=== PATIENT | male | born 1960 | race Asian ===

== ENCOUNTER 2020-10-12 12:36 | Outpatient (REF) | payer MEDICAID, OTHER, SELFPAY ==
[2020-10-12 13:59] LABS: Glucose Urine UA NEG (NEG); Leukocyte Esterase Urine NEG (NEG); Nitrite Urine NEG (NEG); Urine Blood NEG (NEG); Urine Ketones NEG (NEG); Urine Protein NEG (NEG-TRACE)
[2020-10-12 14:00] LABS: Hematocrit 38.9 % (42-52); Hemoglobin 12.6 g/dl (14.0-18.0); Mean Corpuscular HGB Conc 32.4 g/dl (31.0-36.0); Mean Corpuscular Hemoglobin 28.1 pg (27.0-33.0); Mean Corpuscular Volume 86.8 fL (80-98); Mean Platelet Volume 10.8 fL (9.4-12.4); Platelet Count 291 X10*3/uL (160-400); Red Blood Count 4.48 X10*6/uL (4.60-5.80); Red Cell Distribution Width 13.9 % (11.0-16.0); White Blood Count 10.4 X10*3/uL (4.8-10.8)
[2020-10-12 14:11] LABS: Appearance Urine CLEAR; Color Urine YELLOW
[2020-10-12 14:12] LABS: Estimated Average Glucose 143 mg/dL; Hemoglobin A1c % 6.6 %
[2020-10-12 14:51] LABS: Alanine Aminotransferase 42 U/L (0-40); Albumin Level 4.5 g/dL (3.5-5.0); Alkaline Phosphatase 61 U/L (39-117); Anion Gap 13 (12-20); Aspartate Amino Transferase 30 U/L (5-37); Bilirubin Direct 0.2 mg/dL (0.0-0.5); Bilirubin Total 0.4 mg/dL (0.0-1.0); Blood Urea Nitrogen 18 mg/dL (9-16); Calcium 9.9 mg/dL (8.4-10.2); Carbon Dioxide 25 mmol/L (22-29); Chloride 103 mmol/L (96-108); Cholesterol 153 mg/dL; Estimated Glomerular Filt Rate > 60; Glucose Random 94 mg/dL (60-115); HDL Cholesterol 29 mg/dL; LDL Cholesterol Calculated 86 mg/dl; Potassium 4.2 mmol/L (3.3-5.1); Sodium 137 mmol/L (135-145); Total Protein 7.6 g/dL (6.5-8.0); Triglycerides 190 mg/dL
[2020-10-17 10:58] LABS: Vitamin D 25-OH, D2 <4 ng/mL; Vitamin D 25-OH, D3 27 ng/mL; Vitamin D 25-OH, Total 27 ng/mL (30-100)
== END 2020-10-12 12:37 | disposition home or self-care (01) ==
LOC: HO.LAB 12:36
PROVIDERS: PCP Internal Medicine; Visit Provider Internal Medicine
DX: I25.10 Atherosclerotic heart disease of native coronary artery without angina pectoris (principal); E11.9 Type 2 diabetes mellitus without complications; Z12.11 Encounter for screening for malignant neoplasm of colon
CPT/HCPCS: 36415; 80048; 80061; 80076; 81003; 82306; 83036; 85027

== ENCOUNTER → 2020-11-03 12:32 | Outpatient (BNVA) | payer OTHER, MEDICAID, SELFPAY | PROVIDERS: PCP Internal Medicine; Visit Provider Internal Medicine Cardiovascular Disease | DX: Z79.01 Long term (current) use of anticoagulants (principal); I25.10 Atherosclerotic heart disease of native coronary artery without angina pectoris | CPT/HCPCS: 93005; 99202; 99212 ==

== ENCOUNTER → 2021-03-30 13:26 | Outpatient (BNVA) | payer OTHER, SELFPAY | PROVIDERS: PCP Internal Medicine; Visit Provider Internal Medicine Cardiovascular Disease | DX: I25.118 Atherosclerotic heart disease of native coronary artery with other forms of angina pectoris (principal) | CPT/HCPCS: 93005; 99212 ==

== ENCOUNTER → 2021-05-05 13:48 | Outpatient (REF) | payer OTHER, SELFPAY ==
--- NOTE | 2021-05-05 13:54 | CA_ITS ---
Transthoracic Echocardiogram Patient (Last, First, Middle): Rei Murillo, Gender: Male Date of : 1960 Age: 60 Procedure Date: 05/05/2021 Procedure Type: Transthoracic Echocardiogram Location: OP Height: 160.02 cm Weight: 95.26 kg BSA: 1.97 m2 Heart Rate: bpm BP: 110 / 70 mmHg Collection Support Specialist: DSG/ CP Referring MD: Patrick Cunningham MD Symptoms: I20.8 - Other forms of angina pectoris Conclusions: - The left ventricular systolic function is normal. - E/E prime ratio is >15, consistent with elevated filling pressures. - The inferoseptal wall is hypokinetic. - Normal right ventricular cavity size and systolic function. - There is mild dilatation of the ascending aorta. Findings Left Ventricle Normal left ventricular cavity size. There is normal left ventricular wall thickness. The left ventricular systolic function is normal. The visually estimated ejection fraction is between 55-60%. There is evidence of regional wall motion abnormalities. Abnormal diastolic function is noted. Spectral Doppler is indicative of a pseudonormal filling pattern. E/E prime ratio is >15, consistent with elevated filling pressures. Wall Motion Rest Echo Findings The inferoseptal wall is hypokinetic. Right Ventricle Normal right ventricular cavity size and systolic function. Atria Both atria are normal in size. Aortic Valve Normal aortic valve structure and function. There is no aortic valve stenosis. There is no aortic valve regurgitation. Mitral Valve There is mild mitral annular calcification. There is mild mitral valve regurgitation. There is no mitral valve stenosis. Pulmonic Valve Normal pulmonic valve structure and function. There is trace pulmonic valve regurgitation. Tricuspid Valve Normal tricuspid valve structure and function. There is trace tricuspid valve regurgitation. Normal right atrial pressure. There is no evidence of pulmonary hypertension. Great Vessels There is mild dilatation of the ascending aorta. The visualized portions of the pulmonary artery and branches are normal. Venous The inferior vena cava is normal in size and collapses greater than 50% with inspiration. Pericardium/Pleural There is no evidence of pericardial effusion. Prior Study Comparison Changes noted compared to prior study dated: 02/13/2018. Inferoseptal wall is hypokinetic. Measurements 2D Linear Measurements IVSd: 0.86 0.6-0.9/0.6-1.0 cm LVIDd: 4.96 3.9-5.3/4.2-5.9 cm LVIDd Index: 2.52 2.4-3.2/2.2-3.1 cm/m2 LVIDs: 3.10 2.0-3.6 cm LVPWd: 0.84 0.7-1.1 cm Ao Root: 3.40 2.1-3.5 cm LA Diam: 4.10 2.7-3.8/3.0-4.0 cm LAIDs Index: 2.08 1.5-2.3 cm/m2 LV Mass: 180.46 67-162/88-224 g LV Mass Index: 91.60 43-95/49-115 g/m2 LVOT Diam: 2.00 3.0+(-)1.3 cm 2D Systolic Function EF 4C: 64.90 >55% EF 2C: 63.00 >55% Mitral Valve MV Pk E: 1.16 MV PK A: 0.86 MV Decel Time: 223.00 E/A: 1.40 E'Lateral: 8.38 E'Medial: 7.18 E/E' Med: 16.20 E/E' Lat: 13.80 PHT: 65.00 MVA PHT: 3.38 Decel Dickey: 5.22 Aortic Valve AoV Pk Geovanny: 1.64 AoV Pk Grad: 11.00 LVOT LVOT Pk Geovanny: 1.16 LVOT Mn Geovanny: 0.74 LVOT VTI: 0.28 LVOT Pk Grad: 5.00 LVOT Mn Grad: 3.00 LVOT Diam: 2.00 LVOT Area: 3.14 Diastolic Function MV Pk E: 1.16 MV Pk A: 0.86 E/A: 1.40 E'Medial: 7.18 E/E' Med: 16.20 E' Laterial: 8.38 E/E' Lat: 13.80 Right Ventricle TAPSE (mm): 1.80 Tricuspid Valve TR Pk Geovanny: 1.87 TR Pk Grad: 14.00 RA Press: 3.00 RVSP: 17.00 Great Vessels Aorta Ao Root-2D: 3.40 2.0-3.7 cm Ao Asc: 3.60 2.1-3.4 cm Updated in Other Vendor System with Status of Final Patrick Cunningham MD electronically signed on 05/08/2021 8:13:12 PM with status of Final
== END ==
LOC: HO.CARD 13:48
PROVIDERS: PCP Internal Medicine; Visit Provider Internal Medicine Cardiovascular Disease
DX: I20.8 Other forms of angina pectoris (principal)
CPT/HCPCS: 93306

== ENCOUNTER → 2021-07-18 10:37 | Outpatient (BNVA) | payer OTHER, SELFPAY | PROVIDERS: PCP Internal Medicine; Referring Provider Internal Medicine; Visit Provider Internal Medicine Cardiovascular Disease | DX: I25.118 Atherosclerotic heart disease of native coronary artery with other forms of angina pectoris (principal) | CPT/HCPCS: 99212 ==

== ENCOUNTER 2021-08-25 15:34 | Outpatient (REF) | payer OTHER, SELFPAY ==
--- NOTE | ~2021-08-25 | XR_ITS ---
EXAMINATION: XR HAND, LEFT CLINICAL INFORMATION: Primary osteoarthritis. Pain second and third fingers. COMPARISON: None TECHNIQUE: PA, lateral, and oblique views of the left hand. FINDINGS: Bone alignment is normal. No fracture or dislocation is seen. Joint spaces are normal. There are surgical clips in the distal forearm. Soft tissues are otherwise unremarkable. XR/XR hand LT min 3V IMPRESSION: Normal left hand.
== END 2021-08-25 15:35 | disposition home or self-care (01) ==
LOC: HO.XRAY 15:34
PROVIDERS: PCP Internal Medicine; Visit Provider Internal Medicine
DX: M19.049 Primary osteoarthritis, unspecified hand (principal); E11.9 Type 2 diabetes mellitus without complications
CPT/HCPCS: 73130

== ENCOUNTER 2021-08-26 09:46 | Outpatient (REF) | payer OTHER, SELFPAY ==
[2021-08-26 10:33] LABS: Hematocrit 39.4 % (42.0-52.0); Hemoglobin 12.2 g/dl (14.0-18.0); Mean Corpuscular Hemoglobin 27.2 pg (27.0-33.0); Mean Corpuscular Volume 87.9 fL (80.0-98.0); Mean Platelet Volume 11.2 fL (9.4-12.4); Platelet Count 221 X10*3/uL (160-400); Red Blood Count 4.48 X10*6/uL (4.60-5.80); Red Cell Distribution Width 13.7 % (11.0-16.0); White Blood Count 8.4 X10*3/uL (4.8-10.8)
[2021-08-26 11:22] LABS: Cholesterol 141 mg/dL; HDL Cholesterol 28 mg/dL; LDL Cholesterol Calculated 81 mg/dl; Triglycerides 160 mg/dL
[2021-08-26 11:31] LABS: Appearance Urine CLEAR; Color Urine YELLOW; Glucose Urine UA NEG (NEG); Leukocyte Esterase Urine NEG (NEG); Nitrite Urine NEG (NEG); PH 6.5 (5.0-8.0); Urine Blood NEG (NEG); Urine Ketones NEG (NEG); Urine Protein NEG (NEG-TRACE)
[2021-08-26 11:41] LABS: Anion Gap 13 (12-20); Blood Urea Nitrogen 13 mg/dL (9-16); Calcium 9.7 mg/dL (8.4-10.2); Carbon Dioxide 26 mmol/L (22-29); Chloride 104 mmol/L (96-108); Estimated Glomerular Filt Rate > 60; Glucose Random 125 mg/dL (60-115); Potassium 4.4 mmol/L (3.3-5.1); Sodium 139 mmol/L (135-145)
[2021-08-26 12:12] LABS: Creatinine Urine 127.31 mg/dL
[2021-08-26 12:24] LABS: Thyroid Stimulating Hormone 1.17 uIU/mL (0.32-4.0)
[2021-08-31 16:02] LABS: Vitamin D 25-OH, D2 <4 ng/mL; Vitamin D 25-OH, D3 41 ng/mL; Vitamin D 25-OH, Total 41 ng/mL (30-100)
== END 2021-08-26 09:47 | disposition home or self-care (01) ==
LOC: HO.LAB 09:46
PROVIDERS: Absent Provider Internal Medicine; PCP Internal Medicine; Visit Provider Internal Medicine Cardiovascular Disease
DX: E11.9 Type 2 diabetes mellitus without complications (principal); M19.049 Primary osteoarthritis, unspecified hand; I25.10 Atherosclerotic heart disease of native coronary artery without angina pectoris
CPT/HCPCS: 36415; 80048; 80061; 81003; 82043; 82306; 84443; 85027

== ENCOUNTER → 2022-01-16 13:24 | Outpatient (BNVA) | payer OTHER, SELFPAY | PROVIDERS: PCP Internal Medicine; Referring Provider Internal Medicine; Visit Provider Internal Medicine Cardiovascular Disease | DX: G47.30 Sleep apnea, unspecified (principal); R00.2 Palpitations; I20.8 Other forms of angina pectoris | CPT/HCPCS: 93005; 99212 ==

== ENCOUNTER → 2022-01-20 14:58 | Outpatient (BNVA) | payer OTHER, SELFPAY | PROVIDERS: PCP Internal Medicine; Visit Provider Urology | DX: N40.1 Benign prostatic hyperplasia with lower urinary tract symptoms (principal); R35.1 Nocturia; N28.1 Cyst of kidney, acquired | CPT/HCPCS: 51798; 99202 ==

== ENCOUNTER → 2022-01-26 13:48 | Outpatient (REF) | payer OTHER, SELFPAY ==
--- NOTE | 2022-01-26 13:51 | HM_ITS ---
TYPE OF PROCEDURE: Cardiac event monitor. REQUESTING PROVIDER: Dr. Cunningham. REASON FOR TEST: Palpitations. INTERPRETATION: The patient was hooked up for cardiac event monitor from 01/26/2022 to 02/25/2022 for a total period of 30 days. I was rerequested to redictate this study today. FINDINGS: Baseline rhythm is normal sinus rhythm with intermittent episodes of atrial fibrillation. One episode of atrial fibrillation was noted on 02/03/2022 at 2:43 p.m. with heart rate varying from 73 to 123 beats per minute. Otherwise, baseline rhythm was sinus rhythm or sinus bradycardia with isolated PVCs. The patient had multiple events, but there was no clear reported symptoms associated with it. CONCLUSION: 1. Baseline rhythm predominantly sinus rhythm. 2. One episode of atrial fibrillation ranging from 73 beats to 123 beats per minute. 3. No patient reported symptoms. Felipe Ibarra MD NRS/MODL / [id number]
== END ==
LOC: HO.CARD 13:48
PROVIDERS: PCP Internal Medicine; Visit Provider Internal Medicine Cardiovascular Disease
DX: R00.2 Palpitations (principal)
CPT/HCPCS: 93270

== ENCOUNTER → 2022-02-07 14:44 | Outpatient (BNVA) | payer OTHER, SELFPAY | PROVIDERS: PCP Internal Medicine; Referring Provider Internal Medicine; Visit Provider Nurse Practitioner Family | DX: I48.0 Paroxysmal atrial fibrillation (principal); I25.10 Atherosclerotic heart disease of native coronary artery without angina pectoris; G47.30 Sleep apnea, unspecified; R00.2 Palpitations; Z79.82 Long term (current) use of aspirin; Z79.899 Other long term (current) drug therapy | CPT/HCPCS: 93005; 99212 ==

== ENCOUNTER 2022-03-06 15:51 | Outpatient (REF) | payer OTHER, SELFPAY ==
--- NOTE | ~2022-03-06 | US_ITS ---
EXAMINATION: US RETROPERITONEAL LIMITED (RENAL ONLY) CLINICAL INFORMATION: Cyst of kidney, acquired. COMPARISON: None TECHNIQUE: Real-time imaging of the kidneys. FINDINGS: RIGHT KIDNEY: 11.3 x 6.4 x 6.0 cm (SAG x AP x TRV). The kidney is normal in size, contour, and echogenicity. Renal cortical thickness is normal. No focal parenchymal lesions or hydronephrosis. There is an echogenic stone upper pole measuring 0.7 x 0.5 x 0.7 cm and 0.7 x 0.4 x 0.5 cm. LEFT KIDNEY: 11.0 x 6.2 x 5.2 cm (SAG x AP x TRV). The kidney is normal in size, contour, and echogenicity. Renal cortical thickness is normal. No calculi or focal parenchymal lesions. No hydronephrosis. There is mild pelvic fullness US/US renal BI IMPRESSION: Small echogenic nonobstructive stones upper pole right kidney There is mild pelvic fullness left kidney.
== END 2022-03-06 15:52 | disposition home or self-care (01) ==
LOC: HO.US 15:51
PROVIDERS: Visit Provider Urology
DX: N28.1 Cyst of kidney, acquired (principal)
CPT/HCPCS: 76775

== ENCOUNTER → 2022-03-28 15:52 | Outpatient (BNVA) | payer OTHER, SELFPAY | PROVIDERS: PCP Internal Medicine; Visit Provider Urology | DX: N28.1 Cyst of kidney, acquired (principal); N20.0 Calculus of kidney | CPT/HCPCS: 99212 ==

== ENCOUNTER 2022-03-31 10:30 | Outpatient (REF) | payer OTHER, SELFPAY ==
[2022-03-31 11:17] LABS: Hematocrit 38.4 % (42.0-52.0); Hemoglobin 12.5 g/dl (14.0-18.0); Mean Corpuscular HGB Conc 32.6 g/dl (31.0-36.0); Mean Corpuscular Hemoglobin 27.5 pg (27.0-33.0); Mean Corpuscular Volume 84.6 fL (80.0-98.0); Mean Platelet Volume 10.9 fL (9.4-12.4); Platelet Count 231 X10*3/uL (160-400); Red Blood Count 4.54 X10*6/uL (4.60-5.80); Red Cell Distribution Width 14.3 % (11.0-16.0); White Blood Count 9.8 X10*3/uL (4.8-10.8)
[2022-03-31 12:27] LABS: Alanine Aminotransferase 24 U/L (0-40); Albumin Level 4.4 g/dL (3.5-5.0); Alkaline Phosphatase 68 U/L (39-117); Anion Gap 16 (12-20); Aspartate Amino Transferase 22 U/L (5-37); Bilirubin Direct 0.3 mg/dL (0.0-0.5); Bilirubin Total 0.7 mg/dL (0.0-1.0); Blood Urea Nitrogen 14 mg/dL (9-16); Calcium 9.2 mg/dL (8.4-10.2); Carbon Dioxide 25 mmol/L (22-29); Chloride 102 mmol/L (96-108); Cholesterol 96 mg/dL; Estimated Glomerular Filt Rate > 60; Glucose Random 170 mg/dL (60-115); HDL Cholesterol 29 mg/dL; LDL Cholesterol Calculated 32 mg/dl; Potassium 4.5 mmol/L (3.3-5.1); Sodium 138 mmol/L (135-145); Total Protein 7.1 g/dL (6.5-8.0); Triglycerides 175 mg/dL
[2022-03-31 12:36] LABS: Prostate Specific Antigen Scr 0.69 ng/mL (<0.05-4.0); Thyroid Stimulating Hormone 1.46 uIU/mL (0.32-4.0)
[2022-03-31 13:31] LABS: Appearance Urine Clear; Color Urine Yellow; Glucose Urine UA Negative (Negative); Leukocyte Esterase Urine Negative (Negative); Nitrite Urine Negative (Negative); Specific Gravity - Urine 1.025 (1.005-1.025); Urine Blood Negative (Negative); Urine Ketones Trace mg/dL (Negative); Urine Protein Negative (Neg-Trace)
== END 2022-03-31 10:31 | disposition home or self-care (01) ==
LOC: HO.LAB 10:30
PROVIDERS: PCP Internal Medicine; Visit Provider Internal Medicine
DX: Z12.5 Encounter for screening for malignant neoplasm of prostate (principal); R00.2 Palpitations
CPT/HCPCS: 36415; 80048; 80061; 80076; 81003; 84153; 84443; 85027

== ENCOUNTER → 2022-04-04 13:25 | Outpatient (BNVA) | payer OTHER, SELFPAY | PROVIDERS: PCP Internal Medicine; Referring Provider Internal Medicine; Visit Provider Nurse Practitioner Family | DX: I48.0 Paroxysmal atrial fibrillation (principal); I25.10 Atherosclerotic heart disease of native coronary artery without angina pectoris; G47.30 Sleep apnea, unspecified; R00.2 Palpitations; E11.9 Type 2 diabetes mellitus without complications; I10 Essential (primary) hypertension; E78.5 Hyperlipidemia, unspecified; Z95.1 Presence of aortocoronary bypass graft; Z79.01 Long term (current) use of anticoagulants | CPT/HCPCS: 99212 ==

== ENCOUNTER → 2022-07-05 13:47 | Outpatient (BNVA) | payer OTHER, SELFPAY | PROVIDERS: PCP Internal Medicine; Referring Provider Internal Medicine; Visit Provider Internal Medicine Cardiovascular Disease | DX: R00.2 Palpitations (principal); G47.30 Sleep apnea, unspecified; I20.8 Other forms of angina pectoris | CPT/HCPCS: 99212 ==

== ENCOUNTER → 2022-07-20 13:39 | Outpatient (BNVA) | payer OTHER, SELFPAY | PROVIDERS: PCP Internal Medicine; Visit Provider Physician Assistant | DX: R19.5 Other fecal abnormalities (principal); I25.10 Atherosclerotic heart disease of native coronary artery without angina pectoris; E11.9 Type 2 diabetes mellitus without complications; Z95.1 Presence of aortocoronary bypass graft; Z79.01 Long term (current) use of anticoagulants | CPT/HCPCS: 99212 ==

== ENCOUNTER → 2022-09-14 14:56 | Outpatient (BNVA) | payer OTHER, SELFPAY | PROVIDERS: PCP Internal Medicine; Visit Provider Nurse Practitioner Family | DX: Z01.810 Encounter for preprocedural cardiovascular examination (principal); Z71.84 Encounter for health counseling related to travel; I48.0 Paroxysmal atrial fibrillation; I25.10 Atherosclerotic heart disease of native coronary artery without angina pectoris; I10 Essential (primary) hypertension; R00.2 Palpitations; E11.9 Type 2 diabetes mellitus without complications; G47.30 Sleep apnea, unspecified; Z95.1 Presence of aortocoronary bypass graft; Z98.890 Other specified postprocedural states; Z95.828 Presence of other vascular implants and grafts | CPT/HCPCS: 93005; 99212 ==

== ENCOUNTER 2023-03-08 10:34 | Outpatient (REF) | payer OTHER, SELFPAY ==
--- NOTE | ~2023-03-08 | US_ITS ---
EXAMINATION: US RETROPERITONEAL LIMITED (RENAL ONLY) CLINICAL INFORMATION: Calculus of kidney. COMPARISON: Renal ultrasound 03/06/2022. TECHNIQUE: Real-time imaging of the kidneys. FINDINGS: RIGHT KIDNEY: 11.8 x 5.8 x 5.9 cm (SAG x AP x TRV). The kidney is normal in size, contour, and echogenicity. Renal cortical thickness is normal. No focal parenchymal lesions or hydronephrosis. 0.3 x 0.2 x 0.3 cm and 0.3 x 0.1 x 0.2 cm upper pole focal echogenicities are identified. On previous study, 0.7 x 0.5 x 0.7 cm and 0.7 x 0.4 x 0.5 cm renal calculi were described. LEFT KIDNEY: 11.1 x 5.9 x 5.3 cm (SAG x AP x TRV). The kidney is normal in size, contour, and echogenicity. Renal cortical thickness is normal. No focal lesions. Left intrarenal collecting system fullness again demonstrated. US/US renal BI IMPRESSION: Likely small right upper pole nonobstructing renal calculi. Persistent left intrarenal collecting system fullness without hydronephrosis.
== END 2023-03-08 10:35 | disposition home or self-care (01) ==
LOC: HO.US 10:34
PROVIDERS: PCP Internal Medicine; Visit Provider Urology
DX: N20.0 Calculus of kidney (principal)
CPT/HCPCS: 76775

== ENCOUNTER 2023-03-15 10:30 | Outpatient (AMB) | payer OTHER, SELFPAY ==
--- NOTE | 2023-03-15 10:36 | A.OFFPC_ITS ---
Vital Signs 03/15/23 10:37 Height 5 ft 6 in Weight 203 lb 8 oz BMI 32.8 BP 110/70 Blood Pressure Location Lt brachial Position Sitting Pulse 69 Pulse Source Pulse Oximeter Pulse Oximetry (%) 98 Oxygen Delivery Method Room Air Intake Visit Reasons: 3M. F/U-DM Intake Note: Patient is here to follow up on DM. Complaint of body pains and requesting referral to PT, and lab order. Medicine Teacher Required: No Circle Saw Operator: Not Required per policy Accompanied by: Self / Same As Patient Allergies No Known Allergies Allergy (Verified 04/03/23 15:15) Medication List - Last Reconciled 04/03/23 by Rommel Gonzalez MD apixaban (Eliquis) 5 mg PO BID aspirin 81 mg PO DAILY atenolol 50 mg PO BID atorvastatin 80 mg PO BEDTIME blood sugar diagnostic (FreeStyle Lite Strips) USE TO TEST BLOOD SUGAR ONCE DAILY dapagliflozin propanediol (Farxiga) 10 mg PO DAILY ezetimibe (Zetia) 10 mg PO DAILY metformin 1,000 mg PO BID omeprazole magnesium (Prilosec OTC) 20 mg PO BID sitagliptin phosphate (Januvia) 100 mg PO DAILY Tobacco use date assessed: 03/15/23 Fall risk assessment: No Falls in past year Last assessed Fall Risk: 03/15/23 Dental Screening Dental Screen Date: 03/15/23 Did you have a dental visit in the last 12 months?: Yes Did you have a dental problem in the last 6 months where you did not have access to dental care?: No Was dental information given to patient?: Patient has dentist HPI 3M. F/U-DM HPI Details Patient presents to discuss chronic medical conditions. The last A1c was 7.0 . Non compliant with medications, diet or exercise. Reports no symptoms of headache, blurred vision or increased frequency of urination. No symptoms of fatigue. No nausea or vomiting. PFSH Medical History Coronary artery disease Diabetes mellitus Surgical History H/O heart bypass surgery Family History Father No problems noted. Mother No problems noted. Social History Household Members: Family Housing: Apartment Alcohol intake: never Patient Tobacco Use Status: Never used Tobacco e-Cigarette/Vaping Use: Never Used Second Hand Smoke Exposure: No service: No Current occupational status: unemployed Cognitive needs: No Hearing needs: No Vision needs: Yes (glasses) Questionnaire PHQ-9 Over the last 2 weeks, how often have you been bothered by any of the following problems? 1. Little interest or pleasure in doing things: not at all 2. Feeling down, depressed, or hopeless: not at all 3. Trouble falling or staying asleep, or sleeping too much: not at all 4. Feeling tired or having little energy: not at all 5. Poor appetite or overeating: not at all 6. Feeling bad about yourself - or that you are a failure or have let yourself or your family down: not at all 7. Trouble concentrating on things, such as reading the newspaper or watching television: not at all 8. Moving or speaking so slowly that other people could have noticed. Or the opposite - being so fidgety or restless that you have been moving around a lot more than usual: not at all 9. Thoughts that you would be better off or of hurting yourself in some way: not at all Total score: 0 Depression Screening Interpretation: Negative Source: Developed by Drs. Abelardo Patrick, Jazmine Kingston, Jan Gregorio and colleagues, with an educational angela from [employer]. Thrive Questionnaire Date Thrive assessed: 03/15/23 I am a: Patient What is your living situation today?: I have a steady place to live Within the past 12 months, did the food you bought not last and you didn't have the money to get more?: Never true Within the past 12 months, did you worry whether your food would run out before you got money to buy more?: Never true Do you have trouble paying for medicines?: No Do you have trouble getting transportation to medical appointments?: No Do you have trouble paying your heating and electricity bill?: No Do you have trouble taking care of your child, family member or friend?: No Do you have trouble with day-to-day activities such as bathing, preparing meals, shopping, managing finances, etc.?: No Are you currently unemployed and looking for a job?: No Are you interested in more education?: No Currently or been in a relationship where the following occur: no concerns reported AUDIT C Alcohol Use Questionnaire (AUDIT-C) 1. How often do you have a drink containing alcohol?: Never Total Score: 0 ELENA-7 AMB Questionnaire ELENA-7 Date ELENA - 7 assessed: 03/15/23 Feeling nervous, anxious, or on edge: 0 = Not at all Not being able to stop or control worryin = Not at all Worrying too much about different things: 0 = Not at all Trouble relaxin = Not at all Being so restless that it is hard to sit still: 0 = Not at all Becoming easily annoyed or irritable: 0 = Not at all Feeling afraid as if something awful might happen: 0 = Not at all Total ELENA-7 score (0-4 normal; 5-9 mild; 10-14 moderate; 15-21 severe): 0 Source: Developed by Drs. Abelardo Patrick, Jazmine Kingston, Jan Gregorio and colleagues, with an educational angela from [employer]. Physical exam (Primary Care) Vital Signs: Last Vital Signs Pulse 69 03/15/23 10:37 BP 110/70 03/15/23 10:37 Pulse Ox 98 03/15/23 10:37 Oxygen Delivery Method Room Air 03/15/23 10:37 BMI result Body Mass Index 32.8 Tobacco/Smoking Status: Tobacco use Status Tobacco use date assessed 03/15/23 03/15/23 10:45 Patient Tobacco Use Status Never used Tobacco 03/15/23 10:45 e-Cigarette/Vaping Use Never Used 03/15/23 10:45 PHQ-9: PHQ-9 Score PHQ-9: Total score 0 03/15/23 10:50 Depression Screening Interpretation: Negative Thrive Assessment: Date of Thrive Assessment Date Thrive assessed 03/15/23 03/15/23 10:45 Currently or been in a relationship where the following occur: no concerns reported Const General: cooperative, healthy appearing and comfortable HENMT Head: Yes normal to inspection and Yes atraumatic Eyes General: appearance normal, both eyes and all related structures Neck Neck: Yes normal visual inspection and Yes full ROM Chest Chest palpation & inspection: normal inspection of the chest Resp Effort & Inspection: normal respiratory effort Auscultation: clear to auscultation bilaterally Cardio Jugular venous distension: no JVD Palpation: normal PMI Rate: regular rate Heart sounds: S1 normal heart sound present and S2 normal heart sound present GI Palpation (GI): Soft to palpation and No hepatosplenomegaly present Extrem General: Yes normal to inspection and Yes full ROM Results AMB Hemoglobin A1c AMB Hemoglobin A1c 7.0 % Last Edit by LYUBOV Gilliam on 03/15/23 10:50 Results Reviewed Results Reviewed: Laboratory Last Values Hgb A1c (Clinic) 7.0 % (4.0-6.0) H 03/15/23 10:35 Assessment and Plan Assessment & Plan (1) Diabetes mellitus: Code(s): E11.9 - Type 2 diabetes mellitus without complications Plan: Counseling on the importance of diet and exercise done. Increase fluid intake. Continue current medications at the same dosage. Orders: Orders AMB Hemoglobin A1c 03/15/23 E11.9 - Type 2 diabetes mellitus without complicatio ns Coding Level of Care Code Est Pt Level 3 (15588) Diagnoses Diabetes mellitus E11.9
[2023-03-15 10:37] VITALS: BP 110/70; PULSE 69; O2SAT 98; BMI 32.8
== END 2023-03-15 11:06 | disposition home or self-care (01) ==
PROVIDERS: PCP Internal Medicine; Visit Provider Internal Medicine
DX: E11.9 Type 2 diabetes mellitus without complications (principal)
CPT/HCPCS: 83036; 99213

== ENCOUNTER 2023-03-19 15:56 | Outpatient (AMB) | payer OTHER, SELFPAY ==
[2023-03-19 16:00] VITALS: BP 114/70; PULSE 67; BMI 33.1
--- NOTE | 2023-03-19 16:00 | MHC.OFFVIS ---
Intake Vital Signs 03/19/23 16:00 Height 5 ft 6 in Weight 205 lb 0.478 oz BMI 33.1 BP 114/70 Blood Pressure Location Lt brachial Position Sitting Pulse 67 Intake Visit Reasons: 6 mth f/up per DC Intake Note: 6 month follow-up feeling good Tie Cutter Required: No Allergies No Known Allergies Allergy (Verified 03/15/23 10:37) Medication List - Last Reconciled 03/19/23 by Patrick Cunningham MD apixaban (Eliquis) 5 mg PO BID aspirin 81 mg PO DAILY atenolol 50 mg PO BID atorvastatin 80 mg PO BEDTIME blood sugar diagnostic (FreeStyle Lite Strips) USE TO TEST BLOOD SUGAR ONCE DAILY dapagliflozin propanediol (Farxiga) 10 mg PO DAILY ezetimibe (Zetia) 10 mg PO DAILY metformin 1,000 mg PO BID omeprazole magnesium (Prilosec OTC) 20 mg PO BID sitagliptin phosphate (Januvia) 100 mg PO DAILY HPI HPI Comments History of Present Illness Details Pleasant 62-year-old gentleman with background history of diabetes type 2, hypertension, hyperlipidemia, coronary artery bypass surgery in 1999 when he had BLAKE to LAD, vein graft to diagonal, vein graft to obtuse marginal and radial graft to right coronary artery who came with chest discomfort in September to [facility] with ST depressions and T-wave inversion in the precordial leads. He was taken urgently for cardiac catheterization which showed occluded vein graft to diagonal and severe stenosis of the vein graft to OM. His radial graft to RCA and BLAKE to LAD were open. He had drug-eluting stent placed to the vein graft. There was a small thrombus noticed inside the stent angiographically as well as with intravascular ultrasound. He was on Integrilin for 4-6 hours after the procedure. He did well and has been doing fine since then. Echocardiography has shown normal EF 55-60% with diastolic dysfunction, elevated filling pressures and inferoseptal wall hypokinesis. Mild dilation of ascending aorta was also noticed. Taking medications regularly. He is here for follow-up today. He is reporting that he was admitted at [facility] with palpitations. He was told that he is dehydrated. He is describing that his heart skips beats and when he puts the pulse ox his heart rate jumped between 90s to 110s. There was concern for atrial fibrillation admitted a cardiac event monitor which showed atrial fibrillation. Since then he has been started on apixaban. On follow-up today he has been doing well. Denies chest pain or palpitations. Overall taking medications regularly without any significant issues. No bleeding concerns. 03/19/23: He is here for follow-up. Clinically stable. Denying chest discomfort shortness of breath. No palpitations. No bleeding concerns. Tolerating medications well. [facility] Medical History Coronary artery disease Diabetes mellitus Surgical History H/O heart bypass surgery Family History Father No problems noted. Mother No problems noted. Social History Household Members: Family Housing: Apartment Alcohol intake: never Patient Tobacco Use Status: Never used Tobacco e-Cigarette/Vaping Use: Never Used Second Hand Smoke Exposure: No service: No Current occupational status: unemployed Cognitive needs: No Hearing needs: No Vision needs: Yes (glasses) Review of Systems Const Denies chills, Denies fatigue, Denies fever(s), Denies frequent falls, Denies weakness, Denies weight gain and Denies weight loss ENT Denies dizziness Card Denies chest pain, Denies leg edema, Denies lightheadedness, Denies palpitations, Denies dyspnea, Denies dyspnea on exertion, Denies orthopnea and Denies other (loss of consciousness) Resp Denies cough, Denies dyspnea and Denies dyspnea on exertion GI Denies hematochezia and Denies change in stool character Musc Denies abnormal gait, Denies muscle weakness, Denies numbness, Denies radiating pain into limb and Denies tingling Neuro Denies abnormal gait, Denies dizziness, Denies frequent falls, Denies numbness, Denies tingling and Denies weakness Endo Denies fatigue and Denies palpitations Physical Exam Vital Signs: Last Vital Signs Pulse 67 03/19/23 16:00 BP 114/70 03/19/23 16:00 BMI result Body Mass Index 33.1 GENERAL APPEARANCE: in no acute distress, well developed, well nourished. NECK/THYROID: no carotid bruit, no jugular venous distention. SKIN: Midline sternotomy scar. Left radial harvest scar. HEART: no murmurs, regular rate and rhythm, S1, S2 normal. LUNGS: clear to auscultation bilaterally. ABDOMEN: normal, bowel sounds present, soft, nontender, nondistended. EXTREMITIES: no clubbing, cyanosis, or edema. PERIPHERAL PULSES: equal. NEUROLOGIC: nonfocal, alert and oriented. PSYCH: mood/affect full range. Assessment & Plan Assessment & Plan (1) Palpitations: Code(s): R00.2 - Palpitations (2) Sleep disorder breathing: Code(s): G47.30 - Sleep apnea, unspecified (3) Stable angina: Code(s): I20.8 - Other forms of angina pectoris Plan Pleasant 62-year-old gentleman who is here for follow-up. He has background history of bypass surgery. He is doing well from coronary disease point of view and currently has stable angina. He was admitted at [facility] with palpitations. There was concern for atrial fibrillation and we did cardiac event monitor which confirmed atrial fibrillation. He has been started on Eliquis since then. Referred him for a sleep study but it appears he did not do that. Same medications for now. Clinically stable. Follow-up with us in 4 to 6 months. Thank you for allowing me to participate in the care of your patient. Please feel free to contact me if you have any questions. Coding Level of Care Code Est Pt Level 3 (53868) Diagnoses Palpitations R00.2 Sleep disorder breathing G47.30 Stable angina I20.8
== END 2023-03-19 16:37 | disposition home or self-care (01) ==
PROVIDERS: PCP Internal Medicine; Referring Provider Internal Medicine; Visit Provider Internal Medicine Cardiovascular Disease
DX: R00.2 Palpitations (principal); G47.30 Sleep apnea, unspecified; I20.8 Other forms of angina pectoris
CPT/HCPCS: 99213

== ENCOUNTER → 2023-03-19 15:56 | Outpatient (BNVA) | payer OTHER, SELFPAY | PROVIDERS: PCP Internal Medicine; Referring Provider Internal Medicine; Visit Provider Internal Medicine Cardiovascular Disease | DX: I20.8 Other forms of angina pectoris (principal); I10 Essential (primary) hypertension; R00.2 Palpitations; G47.30 Sleep apnea, unspecified; Z95.1 Presence of aortocoronary bypass graft; Z98.890 Other specified postprocedural states | CPT/HCPCS: 99212 ==

== ENCOUNTER 2023-03-23 09:06 | Outpatient (REF) | payer OTHER, SELFPAY ==
[2023-03-23 09:55] LABS: Hematocrit 38.5 % (42.0-52.0); Hemoglobin 12.1 g/dl (14.0-18.0); Mean Corpuscular HGB Conc 31.4 g/dl (31.0-36.0); Mean Corpuscular Hemoglobin 26.1 pg (27.0-33.0); Mean Corpuscular Volume 83.2 fL (80.0-98.0); Mean Platelet Volume 11.3 fL (9.4-12.4); Platelet Count 228 X10*3/uL (160-400); Red Blood Count 4.63 X10*6/uL (4.60-5.80); Red Cell Distribution Width 14.8 % (11.0-16.0); White Blood Count 9.2 X10*3/uL (4.8-10.8)
[2023-03-23 09:56] LABS: Appearance Urine Clear; Color Urine Yellow; Glucose Urine UA >=1000 mg/dL (Negative); Leukocyte Esterase Urine Negative (Negative); Nitrite Urine Negative (Negative); Specific Gravity - Urine >= 1.030 (1.005-1.025); UMIC TRIGGER UA YES; Urine Blood Negative (Negative); Urine Ketones Negative (Negative); Urine Protein Negative (Neg-Trace)
[2023-03-23 10:01] LABS: Bacteria Urine None Seen (None Seen); Hyaline Casts Urine 0-2 /LPF (0-2); RBC Urine 0-2 /HPF (0-2); Squamous Epithelial Cell Urine 0-2 /HPF (0-2); WBC Urine 0-5 /HPF (0-5)
[2023-03-23 10:45] LABS: Alanine Aminotransferase 26 U/L (0-40); Albumin Level 4.3 g/dL (3.5-5.0); Alkaline Phosphatase 64 U/L (39-117); Anion Gap 13 (12-20); Aspartate Amino Transferase 24 U/L (5-37); Bilirubin Direct 0.3 mg/dL (0.0-0.5); Bilirubin Total 0.6 mg/dL (0.0-1.0); Blood Urea Nitrogen 13 mg/dL (9-16); Calcium 9.7 mg/dL (8.4-10.2); Carbon Dioxide 26 mmol/L (22-29); Chloride 105 mmol/L (96-108); Cholesterol 90 mg/dL; Estimated Glomerular Filt Rate > 60; Glucose Random 145 mg/dL (60-115); HDL Cholesterol 28 mg/dL; LDL Cholesterol Calculated 40 mg/dl; Potassium 4.3 mmol/L (3.3-5.1); Sodium 140 mmol/L (135-145); Total Protein 7.5 g/dL (6.5-8.0); Triglycerides 112 mg/dL
[2023-03-23 10:53] LABS: Prostate Specific Antigen Scr 0.89 ng/mL (<0.05-4.0)
[2023-03-23 11:01] LABS: Thyroid Stimulating Hormone 1.26 uIU/mL (0.32-4.0)
== END 2023-03-23 09:07 | disposition home or self-care (01) ==
LOC: HO.LAB 09:06
PROVIDERS: PCP Internal Medicine; Visit Provider Internal Medicine
DX: Z12.5 Encounter for screening for malignant neoplasm of prostate (principal); E11.9 Type 2 diabetes mellitus without complications; I25.10 Atherosclerotic heart disease of native coronary artery without angina pectoris
CPT/HCPCS: 36415; 80048; 80061; 80076; 81001; 84153; 84443; 85027

== ENCOUNTER 2023-03-30 14:47 | Outpatient (AMB) | payer OTHER, SELFPAY ==
--- NOTE | 2023-03-30 14:49 | A.OFFVIS_ITS ---
Intake Intake Visit Reasons: 1Y US(set) Intake Note: Patient presents today via telephone visit for a 1 year follow-up US Results. Nurse Chemical Dependency Required: No Accompanied by: Self / Same As Patient Allergies No Known Allergies Allergy (Verified 03/30/23 14:50) Medication List - Last Reconciled 03/30/23 by Junior Edgar MD apixaban (Eliquis) 5 mg PO BID aspirin 81 mg PO DAILY atenolol 50 mg PO BID atorvastatin 80 mg PO BEDTIME blood sugar diagnostic (FreeStyle Lite Strips) USE TO TEST BLOOD SUGAR ONCE DAILY dapagliflozin propanediol (Farxiga) 10 mg PO DAILY ezetimibe (Zetia) 10 mg PO DAILY metformin 1,000 mg PO BID omeprazole magnesium (Prilosec OTC) 20 mg PO BID sitagliptin phosphate (Januvia) 100 mg PO DAILY HPI HPI Comments History of Present Illness Details Rei is a pleasant [place] male. He is a patient of . He is seen for the following urologic conditions - lower urinary tract symptoms - renal cyst - nephrolithiasis Telemedicine Evaluation 15 min Consultation DoximQuestetra Jeny Video attempted Discussed imaging results Small stones on right side have decreased Good control of HbA1c 6.8 Keeping up fluid hydration Minimal symptoms Continue surveillance Lower urinary tract symptoms Initial evaluation with urgency particularly when running water and change of temperature Current symptoms have resolved Associated conditions include diabetes Did have some benefit with tamsulosin but not enough to continue medication Renal cyst Found during imaging early 2020 17 mm simple cyst left kidney Imaging - 03/27 small stones 6 mm right kidney [facility] Medical History Coronary artery disease Diabetes mellitus Surgical History H/O heart bypass surgery Family History Father No problems noted. Mother No problems noted. Social History Household Members: Family Housing: Apartment Alcohol intake: never Patient Tobacco Use Status: Never used Tobacco e-Cigarette/Vaping Use: Never Used Second Hand Smoke Exposure: No service: No Current occupational status: unemployed Cognitive needs: No Hearing needs: No Vision needs: Yes (glasses) Review of Systems Const All systems reviewed & are unremarkable except as noted in HPI and below Reports no additional complaints Resp Reports no additional complaints GI Reports no additional complaints Reports as per HPI Musc Reports no additional complaints Physical Exam Telemedicine evaluation Appropriate responses Regular breathing rate and rhythm HEENT Head: Yes normal to inspection Ears: hearing grossly normal bilaterally Eyes General: appearance normal, both eyes and all related structures Neck Neck: Yes normal visual inspection Chest Chest palpation & inspection: normal inspection of the chest Resp Effort & Inspection: normal respiratory effort and able to speak in complete sen tences Assessment & Plan Assessment & Plan (1) Nephrolithiasis: Code(s): N20.0 - Calculus of kidney (2) BPH associated with nocturia: Code(s): N40.1 - Benign prostatic hyperplasia with lower urinary tract symptoms; R35.1 - Nocturia Plan Twelve month follow-up PVR Orders: Orders US renal BI 364 Days N20.0 - Calculus of kidney Patient Instructions: Imaging studies, laboratory and physical exam results were discussed and reviewed in detail. No major barriers to patient understanding were identified. An opportunity to ask questions regarding the treatment plan was provided. All questions were answered. The patient expressed understanding and agreement with the above treatment plan. The patient is aware they should contact our office by phone for worsening of their current condition or the appearance of new urologic symptoms. Compliance is encouraged with any medications and followup testing that is ordered. It is a privilege to participate in the urologic care of your patient. If you have any questions or concerns regarding treatment for the above conditions, or other urologic issues, please do not hesitate to contact me. The office telephone contact is [phone]. This note is constructed using voice recognition software. While every effort has been made to ensure accuracy window unit air conditioning mechanic errors may have been included. Yours sincerely, Dr Junior Edgar MD, [facility] - Urology Providers of Expert, Compassionate Care for the Genitourinary System Telehealth Telehealth Location of provider rendering services: practice address Location of patient: address on file Patient Identification confirmed using: Name, : Yes Telehealth method: video Patient verbally consented to treatment: Yes Patient verbally consented to billing insurance company: Yes Patient informed of any privacy concerns related to visit: Yes Coding Level of Care Code Tele Est Pt Level 4 (91271) Diagnoses Nephrolithiasis N20.0 BPH associated with nocturia N40.1; R35.1
== END 2023-03-30 15:24 | disposition home or self-care (01) ==
LOC: HO.HUSH 14:47
PROVIDERS: PCP Internal Medicine; Visit Provider Urology
DX: N20.0 Calculus of kidney (principal); N40.1 Benign prostatic hyperplasia with lower urinary tract symptoms; R35.1 Nocturia
CPT/HCPCS: 99214

== ENCOUNTER → 2023-03-30 14:47 | Outpatient (BNVA) | payer OTHER, SELFPAY | PROVIDERS: PCP Internal Medicine; Visit Provider Urology ==

== ENCOUNTER 2023-06-20 11:00 | Outpatient (RCR) | payer OTHER, SELFPAY ==
--- NOTE | 2023-06-04 11:53 | MHC.PT.EP ---
[facility] [place] Office [place] Office [place] Office [address] Kari Herrera [address] [phone] F: [phone] F: [phone] F: [phone] F: [phone] Physical Therapy Plan of Care Date of Evaluation: 06/04/23 Date of Surgery: NA Diagnosis: Low back pain Other chronic pain Assessment: Chidi is a 62 year old male who is referred to PT for low back pain, other chronic pain . He reports of having pain across his upper back for about a year. Denies any trauma or falls. On PT examination pt stated his pain was initially intermittent in nature but it has gotten worse with time, currently has pain 90% of the time and it worse with supine to sit and driving, 8/10 pain across upper back, TTP along thoracic paraspinals B, B MT, LT and T2 to T 12 spinous process, decreased thoracic rotation, extension and pain with end range shoulder flexion, and abduction, decreased scap muscle strength, altered posture and gait. He lives with his family. He is independent with all ADLS but has pain with them. 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 He would benefit from skilled PT to address the aforementioned impairments and improve tolerance to functional activities. Frequency and Duration: The patient will be seen 2/week for 5 weeks Short Term Goals: 1. Pt will have 50% decrease in pain which will enable him to be painfree 50% of times in a day in 2 weeks. 2. Pt will have all thoracic ROM WNL and painfree which will enable him to drive without pain in 3 weeks. Residential Goals: 1. Pt will demonstrate an increase in muscle strength by 1 grade which will enable him to move from supine to sit without pain in 4 weeks. 2. Pt will be independent with all HEP for symptom management and maintenance following d/c in 5 weeks. Treatment Plan: Modalities to reduce pain, spasms and effusion. Manual therapy to restore motion and function. Therapeutic exercise to improve strength and flexibility. Neuromuscular re-education for posture and balance. Therapeutic activities to return to functional activities of daily living. Electronically signed by: Zainab Pierson PT DPT Please sign and return to therapist. Thank you for your referral.
--- NOTE | 2023-07-24 09:08 | MHC.PT.DC ---
[facility] [place] Office [place] Office [place] Office [address] Kari Herrera [address] [phone] F: [phone] F: [phone] F: [phone] F: [phone] Physical Therapy Discharge Report Diagnosis: Low back pain Other chronic pain Date of Surgery: NA Date of Evaluation: 06/04/23 Date of Discharge: 07/24/23 Treatments to Date: 4 Cancellations to Date: 0 No Shows to Date: 1 Discharge Status: Visit Non-compliance Discharge Summary: Rei simmons showed 3 appointments and did not call to re-schedule in over a month. He is therefore being d/c from PT for non compliance. Electronically signed by: Zainab Pierson PT DPT Please sign and return to therapist. Thank you for your referral.
== END 2023-07-24 09:09 | disposition home or self-care (01) ==
LOC: HO.PT 11:00
PROVIDERS: PCP Internal Medicine; Visit Provider Internal Medicine
DX: M54.50 Low back pain, unspecified (principal); G89.29 Other chronic pain
CPT/HCPCS: 97110; 97112; 97161

== ENCOUNTER 2023-07-09 09:58 | Outpatient (AMB) | payer OTHER, SELFPAY ==
[2023-07-09 10:10] VITALS: BP 126/72; PULSE 62; O2SAT 97; BMI 32.6
--- NOTE | 2023-07-09 10:10 | A.OFFPC_ITS ---
Vital Signs 3 07/09/23 10:10 Height 5 ft 6 in Weight 202 lb BMI 32.6 BP 126/72 Blood Pressure Location Lt brachial Position Sitting Pulse 62 Pulse Source Pulse Oximeter Pulse Oximetry (%) 97 Oxygen Delivery Method Room Air Intake Visit Reasons: Bump left shoulder Intake Note: The patient is present for evaluation of a bump on the left shoulder accompanied by pain, and there is reported growth along with discomfort in the neck. 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 Required: No Accompanied by: Self / Same As Patient Allergies No Known Allergies Allergy (Verified 07/09/23 10:19) Medication List - Last Reconciled 07/09/23 by Jarrod Martínez PA-C apixaban (Eliquis) 5 mg PO BID aspirin 81 mg PO DAILY atenolol 50 mg PO BID atorvastatin 80 mg PO BEDTIME blood sugar diagnostic (FreeStyle Lite Strips) USE TO TEST BLOOD SUGAR ONCE DAILY dapagliflozin propanediol (Farxiga) 10 mg PO DAILY ezetimibe (Zetia) 10 mg PO DAILY metformin 1,000 mg PO BID omeprazole magnesium (Prilosec OTC) 20 mg PO BID sitagliptin phosphate (Januvia) 100 mg PO DAILY Tobacco use date assessed: 03/15/23 Fall risk assessment: No Falls in past year Last assessed Fall Risk: 07/09/23 Dental Screening Dental Screen Date: 07/09/23 Did you have a dental visit in the last 12 months?: Yes Did you have a dental problem in the last 6 months where you did not have access to dental care?: No Was dental information given to patient?: Patient has dentist HPI Bump left shoulder 2 HPI0 Details Patient is a 62-year-old male here today for problem visit. This is the 1st time I am meeting this 62-year-old male with a past medical history significant for AFib, BPH, type 2 diabetes. He reports having a mass over his left shoulder and having pain that radiates into his neck. He reports putting a wound compress and lidocaine patch over the top which has been helpful. Has used some leftover antibiotics which has reduced his pain in the area of left shoulder mass. He otherwise denies any fevers or chills.. Also he reports over the last 4 months having worsening memory issues. He reports he sometimes forgets his address and also names of his family members. He is concerned about this. Will refer to Neurology for evaluation. [facility] Medical History Coronary artery disease Diabetes mellitus Surgical History H/O heart bypass surgery Family History Father No problems noted. Mother No problems noted. Social History Household Members: Family Housing: Apartment Alcohol intake: never Patient Tobacco Use Status: Never used Tobacco e-Cigarette/Vaping Use: Never Used Second Hand Smoke Exposure: No service: No Current occupational status: unemployed Cognitive needs: No Hearing needs: No Vision needs: Yes (glasses) Questionnaire Thrive Questionnaire Date Thrive assessed: 03/15/23 ELENA-7 AMB Questionnaire ELENA-7 Date ELENA - 7 assessed: 03/15/23 Source: Developed by Drs. Abelardo Patrick, Jazmine Kingston, Jan Gregorio and colleagues, with an educational angela from [employer]. Review of Systems Const Denies headache(s) Eyes Denies loss of vision ENT Denies vertigo, Denies dizziness, Denies headache(s) and Denies sore throat Card Denies chest pain, Denies leg edema and Denies lightheadedness Resp Denies cough, Denies hemoptysis and Denies wheezing GI Denies abdominal pain, Denies melena, Denies constipation, Denies diarrhea and Denies vomiting Denies dysuria, Denies urinary frequency and Denies urinary urgency Musc Denies arthralgias, Denies joint swelling, Denies numbness and Denies tingling Neuro Denies Abnormal speech present, Denies behavioral changes, Denies vertigo, Denies dizziness, Denies headache(s), Denies loss of vision, Denies memory loss, Denies numbness and Denies tingling Psych Denies anxiety, Denies behavioral changes, Denies depression, Denies memory loss and Denies panic attacks Macario/Lymph Denies easy bleeding and Denies easy bruising Aller/Immun Denies wheezing Physical exam (Primary Care) Vital Signs: Last Vital Signs Pulse 62 07/09/23 10:10 BP 126/72 07/09/23 10:10 Pulse Ox 97 07/09/23 10:10 Oxygen Delivery Method Room Air 07/09/23 10:10 BMI result Body Mass Index 32.6 Tobacco/Smoking Status: Tobacco use Status Tobacco use date assessed 03/15/23 07/09/23 10:14 Patient Tobacco Use Status Never used Tobacco 07/09/23 10:14 e-Cigarette/Vaping Use Never Used 07/09/23 10:14 Thrive Assessment: Date of Thrive Assessment Date Thrive assessed 03/15/23 07/09/23 10:14 Const General: healthy appearing, no acute distress, alert and awake Nutritional Appearance: well nourished Orientation/consciousness: oriented to person, oriented to place and oriented to time HENMT Ears: TM's normal bilaterally General nose exam: Normal nasal mucous membranes and turbinates present Eyes Conjunctivae: conjunctivae normal Sclerae: sclerae normal Pupils: Equal, round and reactive pupils present Neck Neck: Yes no lymphadenopathy and Yes no JVD Thyroid: Thyroid normal Carotids: no bruits Resp Effort & Inspection: normal respiratory effort and not tachypneic Auscultation: no crackles, no rales, no rhonchi and no wheezes Cardio Rate: regular rate Rhythm: regular rhythm Heart sounds: no murmurs and normal S1 and S2 GI Palpation (GI): Soft to palpation, nontender, no hepatomegaly and no splenomegaly Auscultation: normal bowel sounds Skin General skin exam: no rashes or lesions noted and dry skin Neuro General: oriented to person, oriented to place and oriented to time Cranial nerves: Yes Equal, round and reactive pupils present Speech: No Abnormal speech present Gait exam (Neuro): Normal gait present Motor exam (neuro): no tremor noted Extrem Other: Right upper extremity: full ROM Left upper extremity: full ROM Right lower extremity: full ROM; no edema Left lower extremity: full ROM; no edema Psych Mental Status: mental status grossly normal Speech and movement: Normal speech and movement present Affect: normal affect Attitude: cooperative Thought process: Normal thought process present Office Procedures Flu Questionnaire Does the patient have a severe egg allergy?: No Does the patient have severe life threatening allergies?: No Does the patient have a fever or illness today?: No Has the patient ever had Guillain-[place] Syndrome?: No Has the patient ever had any past reaction to a flu shot?: No Results AMB Hemoglobin A1c 2 AMB Hemoglobin A1c 8.3 % Last Edit by MAGDALENA Bai on 07/09/23 10:19 Immunizations flu vacc [id number] 6mos up(PF) 60 mcg(15 mcgx4)/0.5 mL IM syringe Performing Provider: Jarrod Martínez PA-C [facility] Administered by: MAGDALENA Bai on 07/09/23 10:41 2 Dose Route Admin Location Dispensed Lot Number Expiration Date NDC Personnel Research Psychologist 0.5 mL IM Right Deltoid 0.5 mL [id number] 02/03/24 [id number] Keraderm 2 VIS Given Date VIS Provided VIS Publication Date 07/09/23 Single Vaccine 21 Eligibility Eligibility Date Funding Source Not [facility] Eligible 07/09/23 Private Assessment and Plan Assessment & Plan (1) Subcutaneous abscess: Code(s): L02.91 - Cutaneous abscess, unspecified Qualifiers: Site of cutaneous abscess: extremity Site of cutaneous abscess of extremity: upper extremity Laterality: left Qualified Code(s): L02.414 - Cutaneous abscess of left upper limb Plan: PATIENT'S SIGNS AND SYMPTOMS MOST CONSISTENT WITH A SHOULDER ABSCESS, HAS SOME OVERLYING ERYTHEMA. WILL SUPPLY PATIENT WITH ANTIBIOTICS AND REFER TO GENERAL SURGEON FOR SURGICAL EXCISION. (2) Memory impairment: Code(s): R41.3 - Other amnesia Plan: As per HPI patient having progressive worsening memory issues over the last 4 months. He has forgetten family members names and his own address. He is concerned about this and would like Neurology evaluation. Orders: Orders 2 AMB Hemoglobin A1c Today E11.9 - Type 2 diabetes mellitus without complications Influenza [id number] Immunization Today Z23 - Encounter for immunization Referrals 2 General Surgery Referral L02.414 - Cutaneous abscess of left upper limb Neurology Referral R41.3 - Other amnesia Medications: New 2 amoxicillin-pot clavulanate 875-125 mg 1 tab PO BID 7 days 14 tabs 0RF L02.414 - Cutaneous abscess of left upper limb Coding Level of Care Code Est Pt Level 4 (91372) Diagnoses Cutaneous abscess of left upper extremity L02.414 Site of cutaneous abscess: extremity Site of cutaneous abscess of extremity: upper extremity Laterality: left Memory impairment R41.3
== END 2023-07-09 10:43 | disposition home or self-care (01) ==
PROVIDERS: PCP Internal Medicine; Visit Provider Physician Assistant
DX: L02.414 Cutaneous abscess of left upper limb (principal); R41.3 Other amnesia; E11.9 Type 2 diabetes mellitus without complications; Z23 Encounter for immunization
CPT/HCPCS: 83036; 90471; 90686; 99214

== ENCOUNTER 2023-07-16 13:35 | Outpatient (AMB) | payer OTHER, MEDICAID, SELFPAY ==
--- NOTE | 2023-07-16 13:39 | A.OFFVIS_ITS ---
Intake Vital Signs 07/16/23 14:24 Height 5 ft 6 in Intake Visit Reasons: Cutaneous abscess of left upper limb Intake Note: This patient presents for an assessment for cutaneous abscess of the left upper limb. Pt c/o; pain, swelling On abx: Agumentin Inventory Control Clerk Required: No Allergies No Known Allergies Allergy (Verified 07/09/23 10:19) Medication List - Last Reconciled 07/16/23 by Ketan Puri MD amoxicillin-pot clavulanate 500-125 mg (Augmentin) 1 tab PO BID apixaban (Eliquis) 5 mg PO BID aspirin 81 mg PO DAILY atenolol 50 mg PO BID atorvastatin 80 mg PO BEDTIME blood sugar diagnostic (FreeStyle Lite Strips) USE TO TEST BLOOD SUGAR ONCE DAILY dapagliflozin propanediol (Farxiga) 10 mg PO DAILY ezetimibe (Zetia) 10 mg PO DAILY metformin 1,000 mg PO BID omeprazole magnesium (Prilosec OTC) 20 mg PO BID sitagliptin phosphate (Januvia) 100 mg PO DAILY HPI HPI Comments History of Present Illness Details Patient presents for evaluation of an inflamed/infected left shoulder sebaceous cyst. Spleen going on for several days time. His medical doctor prescribed antibiotics and on the patient presents here for follow-up. He has had marked improvement of the symptoms. The redness and discomfort have improved. Patient has never had such problem before. Chart was reviewed patient evaluated [facility] Medical History Coronary artery disease Diabetes mellitus Surgical History H/O heart bypass surgery Family History Father No problems noted. Mother No problems noted. Social History Household Members: Family Housing: Apartment Alcohol intake: never Patient Tobacco Use Status: Never used Tobacco e-Cigarette/Vaping Use: Never Used Second Hand Smoke Exposure: No service: No Current occupational status: unemployed Cognitive needs: No Hearing needs: No Vision needs: Yes (glasses) Physical Exam Chest Other: Approximately 4 x 3 cm left shoulder sebaceous cyst with some mild erythema. Minimally tender. No obvious fluctuance. Patient states that the redness has improved with his current antibiotics. Assessment & Plan Assessment & Plan (1) Infected sebaceous cyst: Code(s): L72.3 - Sebaceous cyst; L08.9 - Local infection of the skin and subcutaneous tissue, unspecified Plan Patient will be given a renewal of his antibiotics, warm compress to the area, and he will see me in few days time. If the process continues to improve,, he will avoid in I&D. If not, he will require this. Medications: New amoxicillin-pot clavulanate 500-125 mg (Augmentin) 1 tab PO BID 14 tabs 0RF Coding Level of Care Code New Pt Level 4 (69895) Diagnoses Infected sebaceous cyst L72.3; L08.9
== END 2023-07-16 14:37 | disposition home or self-care (01) ==
PROVIDERS: PCP Internal Medicine; Visit Provider Surgery
DX: L72.3 Sebaceous cyst (principal); L08.9 Local infection of the skin and subcutaneous tissue, unspecified
CPT/HCPCS: 99204

== ENCOUNTER → 2023-07-16 13:35 | Outpatient (BNVA) | payer OTHER, SELFPAY | PROVIDERS: PCP Internal Medicine; Visit Provider Surgery | DX: L72.3 Sebaceous cyst (principal); L08.9 Local infection of the skin and subcutaneous tissue, unspecified | CPT/HCPCS: 99202 ==

== ENCOUNTER 2023-07-20 09:37 | Outpatient (REF) | payer OTHER, SELFPAY | END 2023-07-20 09:38 | disposition home or self-care (01) | LOC: HO.LNP 09:37 | PROVIDERS: PCP Internal Medicine; Visit Provider Surgery | DX: L72.9 Follicular cyst of the skin and subcutaneous tissue, unspecified (principal); L08.9 Local infection of the skin and subcutaneous tissue, unspecified | CPT/HCPCS: 11404; 88304; 99212 ==

== ENCOUNTER 2023-07-20 09:37 | Outpatient (AMB) | payer OTHER, MEDICAID, SELFPAY ==
[2023-07-20 09:43] VITALS: BP 144/70; PULSE 66; BMI 32.6
--- NOTE | 2023-07-20 09:43 | A.OFFVIS_ITS ---
Intake Vital Signs 07/20/23 09:43 Height 5 ft 6 in Weight 202 lb BMI 32.6 BP 144/70 H Blood Pressure Location Rt brachial Position Sitting Pulse 66 Intake Visit Reasons: Follow up LT shoulder infected brenden cyst Intake Note: Patient here for 1wk f/u Lt shoulder abscess. Rx amox helping. Patient c/o: pain, tenderness to touch. 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 Required: No Accompanied by: Self / Same As Patient Allergies No Known Allergies Allergy (Verified 07/20/23 09:58) Medication List - Last Reconciled 07/20/23 by Ketan Puri MD amoxicillin-pot clavulanate 500-125 mg (Augmentin) 1 tab PO BID apixaban (Eliquis) 5 mg PO BID aspirin 81 mg PO DAILY atenolol 50 mg PO BID atorvastatin 80 mg PO BEDTIME blood sugar diagnostic (FreeStyle Lite Strips) USE TO TEST BLOOD SUGAR ONCE DAILY dapagliflozin propanediol (Farxiga) 10 mg PO DAILY ezetimibe (Zetia) 10 mg PO DAILY metformin 1,000 mg PO BID omeprazole magnesium (Prilosec OTC) 20 mg PO BID sitagliptin phosphate (Januvia) 100 mg PO DAILY HPI HPI Comments History of Present Illness Details Patient presents for follow-up for his infected left back sebaceous cyst. He was given antibiotics with minimal improvement. [facility] Medical History Coronary artery disease Diabetes mellitus Surgical History H/O heart bypass surgery Family History Father No problems noted. Mother No problems noted. Social History Household Members: Family Housing: Apartment Alcohol intake: never Patient Tobacco Use Status: Never used Tobacco e-Cigarette/Vaping Use: Never Used Second Hand Smoke Exposure: No service: No Current occupational status: unemployed Cognitive needs: No Hearing needs: No Vision needs: Yes (glasses) Physical Exam Vital Signs: Last Vital Signs Pulse 66 07/20/23 09:43 BP 144/70 H 07/20/23 09:43 BMI result Body Mass Index 32.6 Chest Other: Exam is noteworthy for progression of his left sebaceous cyst infection. Patient will require incision and drainage. Office Procedures I&D Drain Details: Risks, benefits, alternatives of incision and drainage of left large upper back sebaceous cyst reviewed the patient and included but not limited to bleeding, infection, numbness, pain, scarring, recurrence and the patient was to proceed. After appropriate positioning, patient under 1% lidocaine and Betadine prep and uneventful incision and drainage of large infected sebaceous cyst. Cultures were obtained. Next the cyst itself was able to be excised as well and sent to pathology for specimen taken. Specimen size was approximately 4 x 3 cm. Wounds irrigated, secured hemostasis, packed, and dressing applied. Patient tolerated procedure well. 44122-Rlxovycs of Skin Abscess, complex All charges added?: Procedure code (CPT) selection complete Assessment & Plan Assessment & Plan (1) Infected sebaceous cyst: Code(s): L72.3 - Sebaceous cyst; L08.9 - Local infection of the skin and subcutaneous tissue, unspecified Plan: Patient is is to continue his antibiotics, script for analgesics, VNA services, and will follow-up with Nba regarding wound care and will see me in approximately week and a half, or p.r.n. Orders: Orders AMB Incision & Drainage Today L08.9 - Local infection of the skin and subcutaneous tissue, unspecified, L72.3 - Sebaceous cyst Medications: New hydrocodone-acetaminophen 5-325 mg Partial Fill upon patient request. 1 tab PO Q4-6H PRN 30 tabs 0RF pain Coding Level of Care Code Est Pt Level 5 (65839) Diagnoses Infected sebaceous cyst L72.3; L08.9 CPT Codes I&D Drain - Drain 2: 27785-Tcznozfj of Skin Abscess, complex ([id number])
== END 2023-07-20 10:07 | disposition home or self-care (01) ==
PROVIDERS: PCP Internal Medicine; Visit Provider Surgery
DX: L08.9 Local infection of the skin and subcutaneous tissue, unspecified (principal); L72.0 Epidermal cyst
CPT/HCPCS: 11404; 99214

== ENCOUNTER 2023-07-20 09:50 | Outpatient (REF) | payer OTHER, MEDICAID, SELFPAY | END 2023-07-20 09:51 | disposition home or self-care (01) | LOC: HO.LAB 09:50 | PROVIDERS: Visit Provider Surgery | DX: L72.3 Sebaceous cyst (principal); L08.9 Local infection of the skin and subcutaneous tissue, unspecified | CPT/HCPCS: 87070; 87205 ==

== ENCOUNTER → 2023-07-23 09:33 | Outpatient (BNVA) | payer OTHER, MEDICAID, SELFPAY | PROVIDERS: PCP Internal Medicine; Visit Provider Surgery | DX: Z48.00 Encounter for change or removal of nonsurgical wound dressing (principal) | CPT/HCPCS: 99211 ==

== ENCOUNTER → 2023-07-24 09:25 | Outpatient (BNVA) | payer OTHER, MEDICAID, SELFPAY | PROVIDERS: PCP Internal Medicine; Visit Provider Surgery | DX: Z48.00 Encounter for change or removal of nonsurgical wound dressing (principal) | CPT/HCPCS: 99211 ==

== ENCOUNTER → 2023-07-25 09:35 | Outpatient (BNVA) | payer OTHER, SELFPAY | PROVIDERS: PCP Internal Medicine; Visit Provider Surgery ==

== ENCOUNTER → 2023-07-26 08:27 | Outpatient (BNVA) | payer OTHER, SELFPAY | PROVIDERS: PCP Internal Medicine; Visit Provider Surgery | DX: Z48.00 Encounter for change or removal of nonsurgical wound dressing (principal) | CPT/HCPCS: 99211 ==

== ENCOUNTER → 2023-07-27 08:28 | Outpatient (BNVA) | payer OTHER, SELFPAY | PROVIDERS: PCP Internal Medicine; Visit Provider Surgery | DX: Z48.00 Encounter for change or removal of nonsurgical wound dressing (principal) | CPT/HCPCS: 99211 ==

== ENCOUNTER → 2023-08-01 08:35 | Outpatient (BNVA) | payer OTHER, SELFPAY | PROVIDERS: PCP Internal Medicine; Visit Provider Surgery ==

== ENCOUNTER 2023-08-03 08:48 | Outpatient (AMB) | payer OTHER, SELFPAY ==
[2023-08-03 08:56] VITALS: BP 129/70; PULSE 54; BMI 32.9
--- NOTE | 2023-08-03 08:56 | A.OFFVIS_ITS ---
Intake Vital Signs 08/03/23 08:56 Height 5 ft 6 in Weight 204 lb BMI 32.9 BP 129/70 Blood Pressure Location Rt brachial Position Sitting Pulse 54 Intake Visit Reasons: s/p I&D infected left back sebaceous cyst Intake Note: Patient here to follow up I&D on Lt shoulder. Patient finished amoxicillin course. Patient reports site healing well. Denies oozing, tenderness, itch. 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 Marked improvement status post I&D of left upper back sebaceous cyst. Patient is completing his antibiotic course. No wound issues or complaints. Pathology is benign. [facility] Medical History Coronary artery disease Diabetes mellitus Surgical History H/O heart bypass surgery Family History Father No problems noted. Mother No problems noted. Social History Household Members: Family Housing: Apartment Alcohol intake: never Patient Tobacco Use Status: Never used Tobacco e-Cigarette/Vaping Use: Never Used Second Hand Smoke Exposure: No service: No Current occupational status: unemployed Cognitive needs: No Hearing needs: No Vision needs: Yes (glasses) Physical Exam Vital Signs: Last Vital Signs Pulse 54 08/03/23 08:56 BP 129/70 08/03/23 08:56 BMI result Body Mass Index 32.9 Chest Other: Left upper back wound healing well. Granulating tissue. No evidence of any residual infection. Cellulitis completely resolved. Assessment & Plan Assessment & Plan (1) Infected sebaceous cyst: Code(s): L72.3 - Sebaceous cyst; L08.9 - Local infection of the skin and subcutaneous tissue, unspecified Plan Patient has been given local instructions, and will follow-up p.r.n.. All questions answered. Coding Level of Care Code Global (82036) Diagnoses Infected sebaceous cyst L72.3; L08.9
== END 2023-08-03 08:59 | disposition home or self-care (01) ==
PROVIDERS: PCP Internal Medicine; Visit Provider Surgery
DX: L72.3 Sebaceous cyst (principal); L08.9 Local infection of the skin and subcutaneous tissue, unspecified
CPT/HCPCS: 99024

== ENCOUNTER → 2023-08-03 08:48 | Outpatient (BNVA) | payer OTHER, SELFPAY | PROVIDERS: PCP Internal Medicine; Visit Provider Surgery | DX: Z09 Encounter for follow-up examination after completed treatment for conditions other than malignant neoplasm (principal); Z87.2 Personal history of diseases of the skin and subcutaneous tissue | CPT/HCPCS: 99212 ==

== ENCOUNTER 2023-08-15 15:40 | Outpatient (REF) | payer OTHER, SELFPAY ==
[2023-08-15 16:59] LABS: Erythrocyte Sedimentation Rate 7 MM/HR (0-15)
[2023-08-15 17:52] LABS: Vitamin B12 245 pg/mL (200-900)
== END 2023-08-15 15:41 | disposition home or self-care (01) ==
LOC: HO.LAB 15:40
PROVIDERS: PCP Internal Medicine; Visit Provider Psychiatry & Neurology Neurology
DX: G30.9 Alzheimer's disease, unspecified (principal)
CPT/HCPCS: 36415; 82607; 85652

== ENCOUNTER 2023-08-20 15:36 | Outpatient (AMB) | payer OTHER, SELFPAY ==
[2023-08-20 15:41] VITALS: BP 130/60; PULSE 55; BMI 32.5
--- NOTE | 2023-08-20 15:41 | MHC.OFFVIS ---
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 Accompanied by: Self / Same As Patient Allergies No Known Allergies Allergy (Verified 08/03/23 08:58) Medication List - Last Reconciled 08/20/23 by Patrick Cunningham MD apixaban (Eliquis) 5 mg PO BID aspirin 81 mg PO DAILY atenolol 50 mg PO BID atorvastatin 80 mg PO BEDTIME blood sugar diagnostic (FreeStyle Lite Strips) USE TO TEST BLOOD SUGAR ONCE DAILY dapagliflozin propanediol (Farxiga) 10 mg PO DAILY ezetimibe (Zetia) 10 mg PO DAILY metformin 1,000 mg PO BID omeprazole 20 mg PO BID omeprazole magnesium (Prilosec OTC) 20 mg PO BID sitagliptin phosphate (Januvia) 100 mg PO DAILY HPI HPI Comments History of Present Illness Details Pleasant 62-year-old gentleman with background history of diabetes type 2, hypertension, hyperlipidemia, coronary artery bypass surgery in 1999 when he had BLAKE to LAD, vein graft to diagonal, vein graft to obtuse marginal and radial graft to right coronary artery who came with chest discomfort in September to [facility] with ST depressions and T-wave inversion in the precordial leads. He was taken urgently for cardiac catheterization which showed occluded vein graft to diagonal and severe stenosis of the vein graft to OM. His radial graft to RCA and BLAKE to LAD were open. He had drug-eluting stent placed to the vein graft. There was a small thrombus noticed inside the stent angiographically as well as with intravascular ultrasound. He was on Integrilin for 4-6 hours after the procedure. He did well and has been doing fine since then. Echocardiography has shown normal EF 55-60% with diastolic dysfunction, elevated filling pressures and inferoseptal wall hypokinesis. Mild dilation of ascending aorta was also noticed. Taking medications regularly. He is here for follow-up today. He is reporting that he was admitted at [facility] with palpitations. He was told that he is dehydrated. He is describing that his heart skips beats and when he puts the pulse ox his heart rate jumped between 90s to 110s. There was concern for atrial fibrillation admitted a cardiac event monitor which showed atrial fibrillation. Since then he has been started on apixaban. On follow-up today he has been doing well. Denies chest pain or palpitations. Overall taking medications regularly without any significant issues. No bleeding concerns. 03/19/23: He is here for follow-up. Clinically stable. Denying chest discomfort shortness of breath. No palpitations. No bleeding concerns. Tolerating medications well. 08/20/23: He returns for follow-up. He has been doing well. No chest discomfort shortness breath. Taking medications regularly. [facility] Medical History Coronary artery disease Diabetes mellitus Surgical History H/O heart bypass surgery Family History Father No problems noted. Mother No problems noted. Social History Household Members: Family Housing: Apartment Alcohol intake: never Patient Tobacco Use Status: Never used Tobacco e-Cigarette/Vaping Use: Never Used Second Hand Smoke Exposure: No service: No Current occupational status: unemployed Cognitive needs: No Hearing needs: No Vision needs: Yes (glasses) Review of Systems Const Reports chills, Reports fatigue, Reports fever(s), Reports frequent falls, Reports weakness, Reports weight gain and Reports weight loss ENT Reports dizziness Card Reports chest pain, Reports leg edema, Reports lightheadedness, Reports palpitations, Reports dyspnea and Reports dyspnea on exertion Resp Reports cough, Reports dyspnea and Reports dyspnea on exertion GI Reports hematochezia Musc Reports abnormal gait, Reports muscle weakness, Reports numbness, Reports radiating pain into limb and Reports tingling Neuro Reports abnormal gait, Reports dizziness, Reports frequent falls, Reports numbness, Reports tingling and Reports weakness Endo Reports fatigue and Reports palpitations Physical Exam Vital Signs: Last Vital Signs Pulse 55 08/20/23 15:41 BP 130/60 08/20/23 15:41 BMI result Body Mass Index 32.5 GENERAL APPEARANCE: in no acute distress, well developed, well nourished. NECK/THYROID: no carotid bruit, no jugular venous distention. SKIN: Midline sternotomy scar. Left radial harvest scar. HEART: no murmurs, regular rate and rhythm, S1, S2 normal. LUNGS: clear to auscultation bilaterally. ABDOMEN: normal, bowel sounds present, soft, nontender, nondistended. EXTREMITIES: no clubbing, cyanosis, or edema. PERIPHERAL PULSES: equal. NEUROLOGIC: nonfocal, alert and oriented. PSYCH: mood/affect full range. Assessment & Plan Assessment & Plan (1) Paroxysmal atrial fibrillation: Code(s): I48.0 - Paroxysmal atrial fibrillation (2) Stable angina: Code(s): I20.8 - Other forms of angina pectoris Plan Pleasant 63 year gentleman who is here for follow-up. He has background history of coronary artery disease and previous graft intervention. Currently stable. He had paroxysmal atrial fibrillation and has been on apixaban. Tolerating anticoagulation well without any bleeding concerns. Clinically stable and will see us back in 6 months. Thank you for allowing me to participate in the care of your patient. Please feel free to contact me if you have any questions. Medications: Changed From apixaban (Eliquis) 5 mg PO BID 60 tabs 5RF I48.0 - Paroxysmal atrial fibrillation To apixaban (Eliquis) 5 mg PO BID 180 tabs 5RF 90 days I48.0 - Paroxysmal atrial fibrillation Coding Level of Care Code Est Pt Level 3 (88373) Diagnoses Paroxysmal atrial fibrillation I48.0 Stable angina I20.8
== END 2023-08-20 15:57 | disposition home or self-care (01) ==
PROVIDERS: PCP Internal Medicine; Visit Provider Internal Medicine Cardiovascular Disease
DX: I48.0 Paroxysmal atrial fibrillation (principal); I20.8 Other forms of angina pectoris
CPT/HCPCS: 99213

== ENCOUNTER → 2023-08-20 15:36 | Outpatient (BNVA) | payer OTHER, MEDICAID, SELFPAY | PROVIDERS: PCP Internal Medicine; Visit Provider Internal Medicine Cardiovascular Disease | DX: I48.0 Paroxysmal atrial fibrillation (principal); I20.89 Other forms of angina pectoris | CPT/HCPCS: 99212 ==

== ENCOUNTER 2023-09-05 19:46 | Outpatient (REF) | payer OTHER, SELFPAY ==
--- NOTE | ~2023-09-05 | MR_ITS ---
EXAMINATION: MR BRAIN WITHOUT CONTRAST CLINICAL INFORMATION: Alzheimer's disease, memory issues COMPARISON: None. TECHNIQUE: MRI of the brain was obtained using routine sequences without contrast. FINDINGS: There is no reduced diffusion to suggest acute infarct. Susceptibility weighted sequence is within normal limits. No mass effect, extra-axial collection, midline shift, or other herniation. Dilated perivascular space along the inferior left basal ganglia. Mild generalized cerebral volume loss with associated ventricular and sulcal prominence. Hippocampal volume appears concordant to the generalized cerebral volume loss. Scattered periventricular and subcortical T2/FLAIR hyperintense foci are nonspecific but likely represent chronic microvascular ischemic change. Intracranial flow voids are preserved. Scattered mucosal thickening in the paranasal sinuses, most prominent in the left maxillary sinus. The mastoid air cells are well-aerated. Bilateral intraocular lens replacements. No focal expansile/destructive osseous lesion. MR/MR head/brain wo con IMPRESSION: No acute intracranial abnormality. Cerebral volume appears within normal limits for the patient's age. Mild chronic microvascular ischemic change.
== END 2023-09-05 19:47 | disposition home or self-care (01) ==
LOC: HO.MRI 19:46
PROVIDERS: PCP Internal Medicine; Visit Provider Psychiatry & Neurology Neurology
DX: G30.9 Alzheimer's disease, unspecified (principal)
CPT/HCPCS: 70551

== ENCOUNTER 2023-09-06 10:17 | Outpatient (AMB) | payer OTHER, SELFPAY ==
--- NOTE | 2023-09-06 10:22 | A.OFFPC_ITS ---
Vital Signs 09/06/23 10:24 Height 5 ft 6 in Weight 201 lb BMI 32.4 BP 124/62 Blood Pressure Location Lt brachial Position Sitting Pulse 65 Pulse Source Pulse Oximeter Pulse Oximetry (%) 97 Oxygen Delivery Method Room Air Intake Visit Reasons: 6 month f/u Intake Note: Patient is here to follow up on DM, PAfib, CAD. 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 per policy Accompanied by: Self / Same As Patient Allergies No Known Allergies Allergy (Verified 09/09/23 19:48) Medication List - Last Reconciled 09/09/23 by Rommel Gonzalez MD apixaban (Eliquis) 5 mg PO BID 90 days aspirin 81 mg PO DAILY atenolol 50 mg PO BID atorvastatin 80 mg PO BEDTIME blood sugar diagnostic (FreeStyle Lite Strips) USE TO TEST BLOOD SUGAR ONCE DAILY dapagliflozin propanediol (Farxiga) 10 mg PO DAILY ezetimibe (Zetia) 10 mg PO DAILY metformin 1,000 mg PO BID omeprazole magnesium (Prilosec OTC) 20 mg PO BID sitagliptin phosphate (Januvia) 100 mg PO DAILY Tobacco use date assessed: 09/06/23 Fall risk assessment: No Falls in past year Last assessed Fall Risk: 09/06/23 Dental Screening Dental Screen Date: 09/06/23 Did you have a dental visit in the last 12 months?: No Did you have a dental problem in the last 6 months where you did not have access to dental care?: No Was dental information given to patient?: No HPI 6 month f/u HPI Details 63 yr old male presents to the office to discuss his medical conditions. Patient reports that he is getting anxious. Anger spells, bhatia behaviour, disturbed sleep pattern, increased appetite. Leaving for [place] next week. [facility] Medical History Coronary artery disease Diabetes mellitus Surgical History H/O heart bypass surgery Family History Father No problems noted. Mother No problems noted. Social History Household Members: Family Housing: Apartment Alcohol intake: never Patient Tobacco Use Status: Never used Tobacco e-Cigarette/Vaping Use: Never Used Second Hand Smoke Exposure: No service: No Current occupational status: unemployed Cognitive needs: No Hearing needs: No Vision needs: Yes (glasses) Questionnaire PHQ-9 Over the last 2 weeks, how often have you been bothered by any of the following problems? 1. Little interest or pleasure in doing things: not at all 2. Feeling down, depressed, or hopeless: nearly every day 3. Trouble falling or staying asleep, or sleeping too much: more than half the days 4. Feeling tired or having little energy: not at all 5. Poor appetite or overeating: not at all 6. Feeling bad about yourself - or that you are a failure or have let yourself or your family down: several days 7. Trouble concentrating on things, such as reading the newspaper or watching television: nearly every day 8. Moving or speaking so slowly that other people could have noticed. Or the opposite - being so fidgety or restless that you have been moving around a lot more than usual: several days 9. Thoughts that you would be better off or of hurting yourself in some way: not at all Total score: 10 Source: Developed by Drs. Abelardo Patrick, Jazmine Kingston, Jan Gregorio and colleagues, with an educational angela from [employer]. Thrive Questionnaire Date Thrive assessed: 09/06/23 I am a: Patient What is your living situation today?: I have a steady place to live Within the past 12 months, did the food you bought not last and you didn't have the money to get more?: Never true Within the past 12 months, did you worry whether your food would run out before you got money to buy more?: Never true Do you have trouble paying for medicines?: No Do you have trouble getting transportation to medical appointments?: No Do you have trouble paying your heating and electricity bill?: No Do you have trouble taking care of your child, family member or friend?: No Do you have trouble with day-to-day activities such as bathing, preparing meals, shopping, managing finances, etc.?: No Are you currently unemployed and looking for a job?: No Are you interested in more education?: No Currently or been in a relationship where the following occur: no concerns reported THRIVE Score: 0 AUDIT C Alcohol Use Questionnaire (AUDIT-C) 1. How often do you have a drink containing alcohol?: Never Total Score: 0 ELENA-7 AMB Questionnaire ELENA-7 Date ELENA - 7 assessed: 09/06/23 Feeling nervous, anxious, or on edge: 2 = More than half the days Not being able to stop or control worryin = Nearly every day Worrying too much about different things: 3 = Nearly every day Trouble relaxin = Nearly every day Being so restless that it is hard to sit still: 3 = Nearly every day Becoming easily annoyed or irritable: 0 = Not at all Feeling afraid as if something awful might happen: 3 = Nearly every day Total ELENA-7 score (0-4 normal; 5-9 mild; 10-14 moderate; 15-21 severe): 17 Source: Developed by Drs. Abelardo Patrick, Jazmine Kingston, Jan Gregorio and colleagues, with an educational angela from [employer]. Physical exam (Primary Care) Vital Signs: Last Vital Signs Pulse 65 09/06/23 10:24 BP 124/62 09/06/23 10:24 Pulse Ox 97 09/06/23 10:24 Oxygen Delivery Method Room Air 09/06/23 10:24 BMI result Body Mass Index 32.4 Tobacco/Smoking Status: Tobacco use Status Tobacco use date assessed 09/06/23 09/06/23 10:24 Patient Tobacco Use Status Never used Tobacco 09/06/23 10:24 e-Cigarette/Vaping Use Never Used 09/06/23 10:24 PHQ-9: PHQ-9 Score PHQ-9: Total score 10 09/06/23 10:33 Thrive Assessment: Date of Thrive Assessment Date Thrive assessed 09/06/23 09/06/23 10:24 Currently or been in a relationship where the following occur: no concerns reported Const General: cooperative and healthy appearing Nutritional Appearance: well nourished Orientation/consciousness: patient oriented x3 Limitations: no limitations HENMT Head: Yes normal to inspection Eyes General: appearance normal, both eyes and all related structures Neck Neck: Yes normal visual inspection Chest Chest palpation & inspection: normal palpation of entire chest wall Resp Effort & Inspection: normal respiratory effort Neuro General: patient oriented x3 Assessment and Plan Assessment & Plan (1) Generalized anxiety disorder: Code(s): F41.1 - Generalized anxiety disorder Plan: SSRI suggested. Patient reports he will return from [facility] and then consider taking medications. Has also agreed to speak to a therapist. Medications: Refilled atorvastatin 80 mg PO BEDTIME 90 tabs 3RF ezetimibe (Zetia) 10 mg PO DAILY 90 tabs 3RF blood sugar diagnostic (FreeStyle Lite Strips) USE TO TEST BLOOD SUGAR ONCE DAILY 100 strips 0RF aspirin 81 mg PO DAILY 90 tabs 3RF atenolol 50 mg PO BID 180 tabs 3RF I25.10 - Atherosclerotic heart disease of [place] coronary artery without angina pectoris Coding Level of Care Code Est Pt Level 3 (98530) Diagnoses Generalized anxiety disorder F41.1
[2023-09-06 10:24] VITALS: BP 124/62; PULSE 65; O2SAT 97; BMI 32.4
== END 2023-09-06 11:06 | disposition home or self-care (01) ==
PROVIDERS: PCP Internal Medicine; Visit Provider Internal Medicine
DX: F41.1 Generalized anxiety disorder (principal)
CPT/HCPCS: 99213

== ENCOUNTER 2023-10-25 13:24 | Outpatient (AMB) | payer OTHER, SELFPAY ==
--- NOTE | 2023-10-25 13:33 | A.OFFPC_ITS ---
Vital Signs 10/25/23 13:34 Height 5 ft 6 in Weight 206 lb 2 oz BMI 33.3 BP 120/76 Blood Pressure Location Lt brachial Position Sitting Pulse 70 Pulse Source Pulse Oximeter Pulse Oximetry (%) 97 Oxygen Delivery Method Room Air Intake Visit Reasons: MED F/U Intake Note: Patient is here to follow up on DM, medication review. Complaint of body aches. 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 Patient has returned from [facility] on October 15. Patient reports that prior to leaving the country, he had seen the neurologist who had ordered an MRI. He was also started on an antidepressant. Patient can not recall the name but is currently taking it. He continues to complain of short-term memory loss and fatigue. [facility] Medical History Coronary artery disease Diabetes mellitus Surgical History H/O heart bypass surgery Family History Father No problems noted. Mother No problems noted. Social History Household Members: Family Housing: Apartment Alcohol intake: never Patient Tobacco Use Status: Never used Tobacco e-Cigarette/Vaping Use: Never Used Second Hand Smoke Exposure: No service: No Current occupational status: unemployed Cognitive needs: No Hearing needs: No Vision needs: Yes (glasses) Questionnaire Thrive Questionnaire Date Thrive assessed: 09/06/23 ELENA-7 AMB Questionnaire ELENA-7 Date ELENA - 7 assessed: 09/06/23 Source: Developed by Drs. Abelardo Patrick, Jazmine Kingston, Jan Gregorio and colleagues, with an educational angela from [employer]. Physical exam (Primary Care) Vital Signs: Last Vital Signs Pulse 70 10/25/23 13:34 BP 120/76 10/25/23 13:34 Pulse Ox 97 10/25/23 13:34 Oxygen Delivery Method Room Air 10/25/23 13:34 BMI result Body Mass Index 33.3 Tobacco/Smoking Status: Tobacco use Status Tobacco use date assessed 10/25/23 10/25/23 13:42 Patient Tobacco Use Status Never used Tobacco 10/25/23 13:42 e-Cigarette/Vaping Use Never Used 10/25/23 13:42 Thrive Assessment: Date of Thrive Assessment Date Thrive assessed 09/06/23 10/25/23 13:42 Const General: cooperative and healthy appearing Nutritional Appearance: well nourished Orientation/consciousness: patient oriented x3 Limitations: no limitations HENMT Head: Yes normal to inspection Eyes General: appearance normal, both eyes and all related structures Neck Neck: Yes normal visual inspection Chest Chest palpation & inspection: normal palpation of entire chest wall Resp Effort & Inspection: normal respiratory effort Neuro General: patient oriented x3 Results AMB Hemoglobin A1c AMB Hemoglobin A1c 7.2 % Last Edit by LYUBOV Gilliam on 10/25/23 13:49 Results Reviewed Results Reviewed: Laboratory Last Values Hgb A1c (Clinic) 7.2 % (4.0-6.0) H 10/25/23 13:32 Assessment and Plan Assessment & Plan (1) Generalized anxiety disorder: Code(s): F41.1 - Generalized anxiety disorder Plan: Patient will inform us of the medication he is taking. Declines the use of a therapist. Patient was advised to continue current medications. Orders: Orders AMB Hemoglobin A1c Today E11.9 - Type 2 diabetes mellitus without complications Medications: Refilled metformin 1,000 mg PO BID 180 tabs 1RF Coding Level of Care Code Est Pt Level 3 (09465) Diagnoses Generalized anxiety disorder F41.1
[2023-10-25 13:34] VITALS: BP 120/76; PULSE 70; O2SAT 97; BMI 33.3
== END 2023-10-25 14:38 | disposition home or self-care (01) ==
PROVIDERS: PCP Internal Medicine; Visit Provider Internal Medicine
DX: F41.1 Generalized anxiety disorder (principal); E11.9 Type 2 diabetes mellitus without complications
CPT/HCPCS: 83036; 99213

== ENCOUNTER 2024-01-03 10:57 | Outpatient (AMB) | payer OTHER, SELFPAY ==
--- NOTE | 2024-01-03 11:00 | MHC.OFFVIS ---
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 Accompanied by: Self / Same As Patient Allergies No Known Allergies Allergy (Verified 01/03/24 11:00) Medication List - Last Reconciled 01/03/24 by Keely Crowley PA-C apixaban (Eliquis) 5 mg PO BID 90 days aspirin 81 mg PO DAILY atenolol 50 mg PO BID 90 days atorvastatin 80 mg PO BEDTIME blood sugar diagnostic (FreeStyle Lite Strips) USE TO TEST BLOOD SUGAR ONCE DAILY dapagliflozin propanediol (Farxiga) 10 mg PO DAILY ezetimibe (Zetia) 10 mg PO DAILY metformin 1,000 mg PO BID omeprazole 40 mg (2 x 20 mg) PO DAILY sitagliptin phosphate (Januvia) 100 mg PO DAILY HPI Comments Details: A 63 y/o male with heartburn- taking omeprazole 20 mg BID- he has been noting increase- unable to ID anything specific He had cologuard in 09/2022- he reports as negative ( no report ), as we investigated further sample was rejected, he was insistent. However he has not requesting colonoscopy-has well as new onset of heartburn and despite my omeprazole b.i.d. Appetite is good Bowels are normal, he does have a hemorrhoid He has no respiratory issues, he follows with Cardiology for AFib takes apixaban No nausea, vomiting hematemesis, fever or chills FOR[facility] Medical History Coronary artery disease Diabetes mellitus Surgical History H/O heart bypass surgery Family History Father No problems noted. Mother No problems noted. Social History Household Members: Family Housing: Apartment Alcohol intake: never Patient Tobacco Use Status: Never used Tobacco e-Cigarette/Vaping Use: Never Used Second Hand Smoke Exposure: No service: No Current occupational status: unemployed Cognitive needs: No Hearing needs: No Vision needs: Yes (glasses) Review of Systems Const All systems reviewed & are unremarkable except as noted in HPI and below Card Denies chest pain Physical Exam Vital Signs: Last Vital Signs Pulse 59 01/03/24 11:02 BP 111/62 01/03/24 11:02 BMI result Body Mass Index 32.3 Const General: cooperative, healthy appearing and comfortable Orientation/consciousness: patient oriented x3 Eyes Sclerae: sclerae normal Resp Effort & Inspection: normal respiratory effort and able to speak in complete sentences Auscultation: clear to auscultation bilaterally, no rales, no rhonchi and no wheezes Cardio Rate: regular rate Rhythm: regular rhythm GI Palpation (GI): Soft to palpation and nontender Auscultation: normal bowel sounds Skin General skin exam: no rashes or lesions noted Neuro General: patient oriented x3 Extrem General: Yes full ROM Psych Appearance: grossly normal and well kempt Mental Status: mental status grossly normal Speech and movement: Clear speech present Affect: normal affect Attitude: cooperative Thought process: Normal thought process present Thought content: Normal thought content present Insight: Good insight present (Psych) Judgement: Good judgement present (Psych) Assessment & Plan Assessment & Plan (1) Anticoagulant long-term use: Comment: Apixaban Code(s): Z79.01 - skilled nursing (current) use of anticoagulants Category: Medical Plan: Hold for 2 days-if authorized by Dr. Peters= workload sent (2) Screening for colon cancer: Comment: Intermittent rectal bleeding with straining known hemorrhoid Code(s): Z12.11 - Encounter for screening for malignant neoplasm of colon Category: Medical (3) Rectal bleeding: Comment: Known hemorrhoid on anticoagulants-[facility] [place] Discussed surgical referral-will wait till after colonoscopy- Code(s): K62.5 - Hemorrhage of anus and rectum Category: Medical Plan: Colonoscopy Consider surgical referral Discussed procedures rare risks Need for escort (4) Acid reflux: Code(s): K21.9 - Gastro-esophageal reflux disease without esophagitis Category: Medical Plan: Continue PPI Reflux precaution Dietary modification EGD Plan Reflux precautions Avoid culprits PPI EGD colonoscopy MiraLax Gatorade prep Hold apixaban 2 days-note to cardiology for authorization-patient aware must be approved Hold Januvia x 2 day Farxiga x 3 day Omit metformin day before No diabetes medications morning of procedure BMI-32.3 Patient Instructions: EGD colonoscopy MiraLax Gatorade prep reviewed literature given Hold apixaban 2 days-note to cardiology for authorization-patient aware must be approved Hold Januvia x 2 day Farxiga x 3 day Omit metformin day before No diabetes medications morning of procedure No barriers to understanding were identified Coding Level of Care Code Est Pt Level 4 (81515) Diagnoses Anticoagulant long-term use Z79.01 Screening for colon cancer Z12.11 Rectal bleeding K62.5 Acid reflux K21.9 Time Spent (min) 30
[2024-01-03 11:02] VITALS: BP 111/62; PULSE 59; BMI 32.3
== END 2024-01-03 12:37 | disposition home or self-care (01) ==
PROVIDERS: PCP Internal Medicine; Visit Provider Physician Assistant
DX: Z79.01 Long term (current) use of anticoagulants (principal); Z12.11 Encounter for screening for malignant neoplasm of colon; K62.5 Hemorrhage of anus and rectum; K21.9 Gastro-esophageal reflux disease without esophagitis
CPT/HCPCS: 99214

== ENCOUNTER → 2024-01-03 10:57 | Outpatient (BNVA) | payer OTHER, SELFPAY | PROVIDERS: PCP Internal Medicine; Visit Provider Physician Assistant | DX: Z12.11 Encounter for screening for malignant neoplasm of colon (principal); K21.9 Gastro-esophageal reflux disease without esophagitis; K62.5 Hemorrhage of anus and rectum; Z79.01 Long term (current) use of anticoagulants | CPT/HCPCS: 99212 ==

== ENCOUNTER 2024-02-13 13:53 | Outpatient (AMB) | payer OTHER, SELFPAY ==
--- NOTE | 2024-02-13 13:56 | A.OFFPC_ITS ---
Vital Signs 02/13/24 13:58 Height 5 ft 6 in Weight 202 lb 6 oz BMI 32.7 BP 100/70 Blood Pressure Location Lt brachial Position Sitting Pulse 54 Pulse Source Pulse Oximeter Pulse Oximetry (%) 97 Oxygen Delivery Method Room Air Intake Visit Reasons: 3mof\u Intake Note: Patient is here to follow up on DM, PAFIB, CAD . Hearing Specialist: Not Required per policy Accompanied by: Self / Same As Patient Allergies No Known Allergies Allergy (Verified 02/13/24 14:07) Tobacco use date assessed: 10/25/23 Fall risk assessment: No Falls in past year Last assessed Fall Risk: 02/13/24 Dental Screening Dental Screen Date: 10/25/23 HPI 3mof\u HPI Details 63-year-old male presents to the office to discuss his chronic medical conditions. Patient is taking 25 mg of sertraline once a day. 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 Patient takes the sertraline in the morning and feels drowsy throughout the day. Easily distracted, short-term memory loss and generalized body aches. Not exercising. Blood sugars are reasonably well controlled. Fasting blood sugars are never greater than 150. [facility] Medical History (Updated 02/13/24 @ 14:40 by Rommel Gonzalez MD) Generalized anxiety disorder Coronary artery disease Diabetes mellitus Surgical History H/O heart bypass surgery Family History Father No problems noted. Mother No problems noted. Social History Household Members: Family Housing: Apartment Alcohol intake: never Patient Tobacco Use Status: Never used Tobacco e-Cigarette/Vaping Use: Never Used Second Hand Smoke Exposure: No service: No Current occupational status: unemployed Cognitive needs: No Hearing needs: No Vision needs: Yes (glasses) Questionnaire Thrive Questionnaire Date Thrive assessed: 09/06/23 ELENA-7 AMB Questionnaire ELENA-7 Date ELENA - 7 assessed: 09/06/23 Source: Developed by Drs. Abelardo Patrick, Jazmine Kingston, Jan Gregorio and colleagues, with an educational angela from [email or web address]. Physical exam (Primary Care) Vital Signs: Last Vital Signs Pulse 54 02/13/24 13:58 BP 100/70 02/13/24 13:58 Pulse Ox 97 02/13/24 13:58 Oxygen Delivery Method Room Air 02/13/24 13:58 BMI result Body Mass Index 32.7 Tobacco/Smoking Status: Tobacco use Status Tobacco use date assessed 10/25/23 02/13/24 14:17 Patient Tobacco Use Status Never used Tobacco 02/13/24 14:17 e-Cigarette/Vaping Use Never Used 02/13/24 14:17 Thrive Assessment: Date of Thrive Assessment Date Thrive assessed 09/06/23 02/13/24 14:17 Const General: cooperative and healthy appearing Nutritional Appearance: well nourished Orientation/consciousness: patient oriented x3 Limitations: no limitations HENMT Head: Yes normal to inspection Eyes General: appearance normal, both eyes and all related structures Neck Neck: Yes normal visual inspection Chest Chest palpation & inspection: normal palpation of entire chest wall Resp Effort & Inspection: normal respiratory effort Neuro General: patient oriented x3 Results AMB Hemoglobin A1c AMB Hemoglobin A1c 7.6 % Last Edit by LYUBOV Gilliam on 02/13/24 14:23 Results Reviewed Results Reviewed: Laboratory Last Values Hgb A1c (Clinic) 7.6 % (4.0-6.0) H 02/13/24 14:18 Assessment and Plan Assessment & Plan (1) Diabetes mellitus: Code(s): E11.9 - Type 2 diabetes mellitus without complications Plan: A1c has worsened from 7.2-7.6. I suggested patient exercise and have a reasonable diet. No changes have been made in the dosages of his medications. We will continue to monitor. (2) Generalized anxiety disorder: Code(s): F41.1 - Generalized anxiety disorder Plan: Zoloft has been increased to 50 mg once a day. Follow-up appointment in 1 month. Orders: Orders AMB Hemoglobin A1c Today E11.9 - Type 2 diabetes mellitus without complications Medications: New sertraline 50 mg PO DAILY 90 tabs 1RF Coding Level of Care Code Est Pt Level 4 (04527) Complex EM visit Add On G2211 Diagnoses Diabetes mellitus E11.9 Generalized anxiety disorder F41.1
[2024-02-13 13:58] VITALS: BP 100/70; PULSE 54; O2SAT 97; BMI 32.7
== END 2024-02-13 14:36 | disposition home or self-care (01) ==
PROVIDERS: PCP Internal Medicine; Visit Provider Internal Medicine
DX: E11.9 Type 2 diabetes mellitus without complications (principal); F41.1 Generalized anxiety disorder
CPT/HCPCS: 83036; 99214; G2211

== ENCOUNTER 2024-02-18 11:04 | Outpatient (AMB) | payer OTHER, SELFPAY ==
[2024-02-18 11:06] VITALS: BP 120/62; PULSE 59; BMI 32.3
--- NOTE | 2024-02-18 11:06 | A.OFFVIS_ITS ---
Vital Signs 02/18/24 11:06 Height 5 ft 6 in Weight 200 lb 2.876 oz BMI 32.3 BP 120/62 Blood Pressure Location Lt brachial Position Sitting Pulse 59 Pulse Source Monitor Intake Visit Reasons: 6 mth f/up Intake Note: 6 mth f/up/ pt its feeling fine. Insurance Healthcare Consultant Required: No Accompanied by: Self / Same As Patient Allergies No Known Allergies Allergy (Verified 02/13/24 14:07) Medication List - Last Reconciled 02/18/24 by Patrick Cunningham MD apixaban (Eliquis) 5 mg PO BID 90 days aspirin 81 mg PO DAILY atenolol 50 mg PO BID 90 days atorvastatin 80 mg PO BEDTIME blood sugar diagnostic (FreeStyle Lite Strips) USE TO TEST BLOOD SUGAR ONCE DAILY dapagliflozin propanediol (Farxiga) 10 mg PO DAILY ezetimibe (Zetia) 10 mg PO DAILY metformin 1,000 mg PO BID omeprazole 40 mg (2 x 20 mg) PO DAILY sertraline 50 mg PO DAILY sitagliptin phosphate (Januvia) 100 mg PO DAILY HPI Comments Details: Pleasant 62-year-old gentleman with background history of diabetes type 2, hypertension, hyperlipidemia, coronary artery bypass surgery in 1999 when he had BLAKE to LAD, vein graft to diagonal, vein graft to obtuse marginal and radial graft to right coronary artery who came with chest discomfort in September to [facility] with ST depressions and T-wave inversion in the precordial leads. He was taken urgently for cardiac catheterization which showed occluded vein graft to diagonal and severe stenosis of the vein graft to OM. His radial graft to RCA and BLAKE to LAD were open. He had drug-eluting stent placed to the vein graft. There was a small thrombus noticed inside the stent angiographically as well as with intravascular ultrasound. He was on Integrilin for 4-6 hours after the procedure. He did well and has been doing fine since then. Echocardiography has shown normal EF 55-60% with diastolic dysfunction, elevated filling pressures and inferoseptal wall hypokinesis. Mild dilation of ascending aorta was also noticed. Taking medications regularly. He is here for follow-up today. He is reporting that he was admitted at [facility] with palpitations. He was told that he is dehydrated. He is describing that his heart skips beats and when he puts the pulse ox his heart rate jumped between 90s to 110s. There was concern for atrial fibrillation admitted a cardiac event monitor which showed atrial fibrillation. Since then he has been started on apixaban. On follow-up today he has been doing well. Denies chest pain or palpitations. Overall taking medications regularly without any significant issues. No bleeding concerns. 03/19/23: He is here for follow-up. Clinically stable. Denying chest discomfort shortness of breath. No palpitations. No bleeding concerns. Tolerating medications well. 08/20/23: He returns for follow-up. He has been doing well. No chest discomfort shortness breath. Taking medications regularly. 02/18/24: He is here for follow-up. He has been doing well without any exertional chest discomfort shortness of breath. No dizziness or syncope. EKG in the office today showing right bundle-branch block which is new with precordial T-wave inversions. He also has somewhat poor R-wave progression in the lateral leads. Clinically he is denying any symptoms. He is on atenolol 50 mg twice a day. [facility] Medical History (Updated 02/18/24 @ 11:28 by Patrick Cunningham MD) Generalized anxiety disorder Coronary artery disease Diabetes mellitus Surgical History H/O heart bypass surgery Family History Father No problems noted. Mother No problems noted. Social History Household Members: Family Housing: Apartment Alcohol intake: never Patient Tobacco Use Status: Never used Tobacco e-Cigarette/Vaping Use: Never Used Second Hand Smoke Exposure: No service: No Current occupational status: unemployed Cognitive needs: No Hearing needs: No Vision needs: Yes (glasses) Review of Systems Const Denies chills, Denies fatigue, Denies fever(s), Denies frequent falls, Denies weakness, Denies weight gain and Denies weight loss ENT Denies dizziness Card Denies chest pain, Denies leg edema, Denies lightheadedness, Denies palpitations, Denies dyspnea and Denies dyspnea on exertion Resp Denies cough, Denies dyspnea and Denies dyspnea on exertion GI Denies hematochezia Musc Denies abnormal gait, Denies muscle weakness, Denies numbness, Denies radiating pain into limb and Denies tingling Neuro Denies abnormal gait, Denies dizziness, Denies frequent falls, Denies numbness, Denies tingling and Denies weakness Endo Denies fatigue and Denies palpitations Physical Exam GENERAL APPEARANCE: in no acute distress, well developed, well nourished. NECK/THYROID: no carotid bruit, no jugular venous distention. SKIN: Midline sternotomy scar. Left radial harvest scar. HEART: Systolic murmur aortic area, bradycardic. LUNGS: clear to auscultation bilaterally. ABDOMEN: normal, bowel sounds present, soft, nontender, nondistended. EXTREMITIES: no clubbing, cyanosis, or edema. PERIPHERAL PULSES: equal. NEUROLOGIC: nonfocal, alert and oriented. PSYCH: mood/affect full range. Office Procedures EKG Details: Sinus bradycardia 59 beats per minute, left axis deviation, inferior infarct, precordial T-wave inversions with right bundle-branch block, can not rule out anterolateral infarct, QTC 455 milliseconds. [id number], Complete Assessment & Plan Assessment & Plan (1) RBBB: Code(s): I45.10 - Unspecified right bundle-branch block Category: Medical (2) Coronary artery disease: Comment: Status post bypass surgery. September 2020 he presented with unstable angina and was taken for cardiac catheterization which reveals severe stenosis of the vein graft to OM which was treated with drug-eluting stent. Code(s): I25.10 - Atherosclerotic heart disease of augustine coronary artery without angina pectoris Category: Medical (3) Stable angina: Code(s): I20.8 - Other forms of angina pectoris Category: Medical Plan [age] year gentleman who is here for follow-up. He has background history of coronary artery bypass surgery. He also had paroxysmal atrial fibrillation. EKG in the office is showing right bundle-branch block. He previously had inferior infarct on the EKGs which is an old finding. Denying any chest pain or shortness of breath. I have advised him to use atenolol once a day rather than b.i.d.. We will arrange an echocardiogram to start with to assess LV function. If he has any LV dysfunction then would consider further workup starting with stress testing. Blood pressure well controlled. Follow-up with us in 2 months. Thank you for allowing me to participate in the care of your patient. Please feel free to contact me if you have any questions. Orders: Orders CA echo transthorac w con Today I20.8 - Other forms of angina pectoris Medications: Changed From atenolol 50 mg PO BID 90 days 180 tabs 3RF I25.10 - Atherosclerotic heart disease of augustine coronary artery without angina pectoris To atenolol 50 mg PO DAILY 90 days 90 tabs 3RF I25.10 - Atherosclerotic heart disease of augustine coronary artery without angina pectoris Coding Level of Care Code Est Pt Level 4 (42935) Diagnoses RBBB I45.10 Coronary artery disease I25.10 Stable angina I20.8 CPT Codes EKG - CPT: 70981-[id number], Complete ([id number])
== END 2024-02-18 11:28 | disposition home or self-care (01) ==
PROVIDERS: PCP Internal Medicine; Visit Provider Internal Medicine Cardiovascular Disease
DX: I45.10 Unspecified right bundle-branch block (principal); I25.118 Atherosclerotic heart disease of native coronary artery with other forms of angina pectoris; R00.1 Bradycardia, unspecified
CPT/HCPCS: 93010; 99214

== ENCOUNTER → 2024-02-18 11:04 | Outpatient (BNVA) | payer OTHER, SELFPAY | PROVIDERS: PCP Internal Medicine; Visit Provider Internal Medicine Cardiovascular Disease | DX: I45.10 Unspecified right bundle-branch block (principal); I25.118 Atherosclerotic heart disease of native coronary artery with other forms of angina pectoris; R00.1 Bradycardia, unspecified; R94.31 Abnormal electrocardiogram [ECG] [EKG] | CPT/HCPCS: 93005; 99212 ==

== ENCOUNTER 2024-02-19 11:42 | Outpatient (REF) | payer OTHER, SELFPAY ==
[2024-02-19 12:26] LABS: Hematocrit 44.8 % (42.0-52.0); Hemoglobin 14.4 g/dl (14.0-18.0); Mean Corpuscular HGB Conc 32.1 g/dl (31.0-36.0); Mean Corpuscular Volume 87.2 fL (80.0-98.0); Mean Platelet Volume 10.7 fL (9.4-12.4); Platelet Count 222 X10*3/uL (160-400); Red Blood Count 5.14 X10*6/uL (4.60-5.80); Red Cell Distribution Width 14.2 % (11.0-16.0); White Blood Count 10.2 X10*3/uL (4.8-10.8)
[2024-02-19 12:56] LABS: Alanine Aminotransferase 21 U/L (0-40); Albumin Level 4.3 g/dL (3.5-5.0); Alkaline Phosphatase 66 U/L (39-117); Anion Gap 14 (12-20); Aspartate Amino Transferase 16 U/L (5-37); Bilirubin Direct 0.3 mg/dL (0.0-0.5); Bilirubin Total 0.8 mg/dL (0.0-1.0); Blood Urea Nitrogen 14 mg/dL (9-16); Calcium 9.5 mg/dL (8.4-10.2); Carbon Dioxide 24 mmol/L (22-29); Chloride 103 mmol/L (96-108); Cholesterol 99 mg/dL (<200); Estimated Glomerular Filt Rate > 60; Glucose Random 165 mg/dL (60-115); HDL Cholesterol 29 mg/dL (>40); LDL Cholesterol Calculated 46 mg/dL (<100); Potassium 4.3 mmol/L (3.3-5.1); Sodium 137 mmol/L (135-145); Total Protein 7.2 g/dL (6.5-8.0); Triglycerides 122 mg/dL (<150)
[2024-02-19 13:10] LABS: Prostate Specific Antigen Scr 0.84 ng/mL (<0.05-4.0)
[2024-02-19 13:13] LABS: Thyroid Stimulating Hormone 1.29 uIU/mL (0.32-4.0)
== END 2024-02-19 11:43 | disposition home or self-care (01) ==
LOC: HO.LAB 11:42
PROVIDERS: PCP Internal Medicine; Visit Provider Internal Medicine
DX: E11.9 Type 2 diabetes mellitus without complications (principal)
CPT/HCPCS: 36415; 80048; 80061; 80076; 84153; 84443; 85027

== ENCOUNTER 2024-02-27 14:23 | Outpatient (AMB) | payer OTHER, SELFPAY ==
--- NOTE | 2024-02-27 14:33 | MHC.PC.OV ---
Vital Signs 02/27/24 14:34 Height 5 ft 6 in Weight 198 lb 8 oz BMI 32.0 BP 112/62 Blood Pressure Location Lt brachial Position Sitting Pulse 69 Pulse Source Pulse Oximeter Pulse Oximetry (%) 98 Oxygen Delivery Method Room Air Intake Visit Reasons: 2 Week F/U Intake Note: Patient is here to follow up on DM, ELENA. 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 He has been taking sertraline for some time now. Medication was started for anxiety issues. Patient reports that he is feeling better and notes improvement in his short-term memory. However the medication makes him very drowsy. Initially he was taking it in the daytime, in the morning and particular and he would find the whole day very drowsy and difficult to keep his eyes open. I had suggested that he switch to taking the medication in the evening. Patient reports that he is still not able to wake up before 11:00. He gets up at 05:00 for prayers but promptly goes back to sleep. 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 [facility] Medical History (Updated 02/18/24 @ 11:28 by Patrick Cunningham MD) Generalized anxiety disorder Coronary artery disease Diabetes mellitus Surgical History H/O heart bypass surgery Family History Father No problems noted. Mother No problems noted. Social History Household Members: Family Housing: Apartment Alcohol intake: never Patient Tobacco Use Status: Never used Tobacco e-Cigarette/Vaping Use: Never Used Second Hand Smoke Exposure: No service: No Current occupational status: unemployed Cognitive needs: No Hearing needs: No Vision needs: Yes (glasses) Questionnaire Thrive Questionnaire Date Thrive assessed: 09/06/23 ELENA-7 AMB Questionnaire LEENA-7 Date ELENA - 7 assessed: 09/06/23 Source: Developed by Drs. Abelardo Patrick, Jazmine Kingston, Jan Gregorio and colleagues, with an educational angela from [employer]. Physical exam (Primary Care) Vital Signs: Last Vital Signs Pulse 69 02/27/24 14:34 BP 112/62 02/27/24 14:34 Pulse Ox 98 02/27/24 14:34 Oxygen Delivery Method Room Air 02/27/24 14:34 BMI result Body Mass Index 32.0 Tobacco/Smoking Status: Tobacco use Status Tobacco use date assessed 02/27/24 02/27/24 14:40 Patient Tobacco Use Status Never used Tobacco 02/27/24 14:40 e-Cigarette/Vaping Use Never Used 02/27/24 14:40 Thrive Assessment: Date of Thrive Assessment Date Thrive assessed 09/06/23 02/27/24 14:40 Const General: cooperative and healthy appearing Nutritional Appearance: well nourished Orientation/consciousness: patient oriented x3 Limitations: no limitations HENMT Head: Yes normal to inspection Eyes General: appearance normal, both eyes and all related structures Neck Neck: Yes normal visual inspection Chest Chest palpation & inspection: normal palpation of entire chest wall Resp Effort & Inspection: normal respiratory effort Neuro General: patient oriented x3 Assessment and Plan Assessment & Plan (1) Generalized anxiety disorder: Code(s): F41.1 - Generalized anxiety disorder Plan: Sertraline has been stopped and replaced with Escitalopram. Will try this medication for a month. Patient was advised to take it around 18:00. citalopram Medications: New escitalopram oxalate 10 mg PO DAILY 30 days 30 tabs 0RF citalopram 10 mg PO DAILY 60 tabs 0RF Discontinued sertraline Discontinued Reason: Doctor's Order 50 mg PO DAILY 90 tabs 1RF Coding Level of Care Code Est Pt Level 4 (86105) Complex EM visit Add On G2211 Diagnoses Generalized anxiety disorder F41.1
[2024-02-27 14:34] VITALS: BP 112/62; PULSE 69; O2SAT 98; BMI 32.0
== END 2024-02-27 15:15 | disposition home or self-care (01) ==
PROVIDERS: PCP Internal Medicine; Visit Provider Internal Medicine
DX: F41.1 Generalized anxiety disorder (principal)
CPT/HCPCS: 99214; G2211

== ENCOUNTER → 2024-03-04 11:03 | Outpatient (REF) | payer OTHER, SELFPAY ==
--- NOTE | 2024-03-04 11:08 | CA_ITS ---
Transthoracic Echocardiogram Patient (Last, First, Middle): Rei Murillo, Gender: Male Date of : 1960 Age: 63 Procedure Date: 03/04/2024 Procedure Type: Transthoracic Echocardiogram Location: OP Height: 167.64 cm Weight: 89.81 kg BSA: 1.99 m2 Heart Rate: 71 bpm BP: 130 / 75 mmHg Pattern Setter: JEFFERY Referring MD: Patrick Cunningham MD Symptoms: I20.8 - Other forms of angina pectoris Study Quality: Adequate ECG Rhythm: Sinus Conclusions: - Normal left ventricular size, thickness, systolic function, and wall motion. The visually estimated ejection fraction is between 55-60%. There is no evidence of regional wall motion abnormalities. Abnormal diastolic function is noted. Spectral Doppler is indicative of a pseudonormal filling pattern. Elevated filling pressures. - Normal right ventricular cavity size. There is mildly decreased right ventricular systolic function. - There is mild dilatation of the ascending aorta measuring 3.60 cm. Findings Left Ventricle Normal left ventricular size, thickness, systolic function, and wall motion. The visually estimated ejection fraction is between 55-60%. There is no evidence of regional wall motion abnormalities. Abnormal diastolic function is noted. Spectral Doppler is indicative of a pseudonormal filling pattern. Elevated filling pressures. Right Ventricle Normal right ventricular cavity size. There is mildly decreased right ventricular systolic function. Atria The left atrium is likely dilated. The right atrium is normal in size. Aortic Valve Normal aortic valve structure and function. There is no aortic valve stenosis. There is no aortic valve regurgitation. Mitral Valve The mitral valve appears normal. There is trace mitral valve regurgitation. There is no mitral valve stenosis. Pulmonic Valve The pulmonic valve is normal. There is trace pulmonic valve regurgitation. Tricuspid Valve Normal tricuspid valve structure. There is no tricuspid valve regurgitation. Normal right atrial pressure. There is no evidence of pulmonary hypertension. Great Vessels There is mild dilatation of the ascending aorta measuring 3.60 cm. The visualized portions of the pulmonary artery and branches are normal. Venous The inferior vena cava is normal in size and collapses greater than 50% with inspiration. Pericardium/Pleural There is no evidence of pericardial effusion. Prior Study Comparison Changes noted compared to prior study dated: 05/05/2021. EF 55-60%, elevated filling pressures, mildly decreased RV function. Measurements 2D Linear Measurements IVSd: 0.97 0.6-0.9/0.6-1.0 cm LVIDd: 4.31 3.9-5.3/4.2-5.9 cm LVIDd Index: 2.17 2.4-3.2/2.2-3.1 cm/m2 LVIDs: 3.49 2.0-3.6 cm LVPWd: 1.07 0.7-1.1 cm LA Diam: 4.00 2.7-3.8/3.0-4.0 cm LAIDs Index: 2.01 1.5-2.3 cm/m2 LV Mass: 183.28 67-162/88-224 g LV Mass Index: 92.10 43-95/49-115 g/m2 LVOT Diam: 1.90 3.0+(-)1.3 cm 2D Systolic Function EF 4C: 54.20 >55% EF 2C: 66.90 >55% EF BiP: 60.70 >55% Mitral Valve MV Pk E: 1.12 MV PK A: 0.82 MV Decel Time: 204.00 E/A: 1.40 E'Lateral: 7.51 E'Medial: 7.07 E/E' Med: 15.80 E/E' Lat: 14.90 PHT: 60.00 MVA PHT: 3.67 Decel [place]: 5.46 Aortic Valve AoV Pk Geovanny: 1.49 AoV Mn Geovanny: 0.98 AoV VTI: 0.31 AoV Pk Grad: 9.00 Aov Mn Grad: 4.00 CEFERINO Cont.VTI: 2.02 LVOT LVOT Pk Geovanny: 0.94 LVOT Mn Geovanny: 0.66 LVOT VTI: 0.22 LVOT Pk Grad: 4.00 LVOT Mn Grad: 2.00 LVOT Diam: 1.90 LVOT Area: 2.84 Diastolic Function MV Pk E: 1.12 MV Pk A: 0.82 E/A: 1.40 E'Medial: 7.07 E/E' Med: 15.80 E' Laterial: 7.51 E/E' Lat: 14.90 Right Ventricle TAPSE (mm): 14.80 TVS' Geovanny: 9.14 Tricuspid Valve TR Pk Geovanny: 1.86 TR Pk Grad: 14.00 RA Press: 3.00 RVSP: 17.00 Great Vessels Aorta Sinus of Valsalva: 3.60 2.0-3.5 cm Ao Asc: 3.60 2.1-3.4 cm Pulmonary Valve PV Pk Geovanny: 1.19 Peak PV Grad: 6.00 Updated in Other Vendor System with Status of Final Patrick Cunningham MD electronically signed on 03/04/2024 2:22:38 PM with status of Final
== END ==
LOC: HO.CARD 11:03
PROVIDERS: PCP Internal Medicine; Visit Provider Internal Medicine Cardiovascular Disease
DX: I20.89 Other forms of angina pectoris (principal)
CPT/HCPCS: 93306

== ENCOUNTER → 2024-03-04 11:08 | Outpatient (BNV) | payer OTHER, SELFPAY | PROVIDERS: PCP Internal Medicine; Visit Provider Internal Medicine Cardiovascular Disease | DX: I20.89 Other forms of angina pectoris (principal); R93.1 Abnormal findings on diagnostic imaging of heart and coronary circulation | CPT/HCPCS: 93306 ==

== ENCOUNTER 2024-03-17 10:23 | Outpatient (REF) | payer OTHER, SELFPAY ==
--- NOTE | ~2024-03-17 | US_ITS ---
EXAMINATION: US RETROPERITONEAL COMPLETE (RENAL) CLINICAL INFORMATION: Renal calculus. COMPARISON: Renal ultrasound March 08, 2023 TECHNIQUE: Real-time imaging of the kidneys and bladder. FINDINGS: RIGHT KIDNEY: 11.2 x 6.3 x 6.7 cm (SAG x AP x TRV). The kidney is normal in size, contour, and echogenicity. Renal cortical thickness is normal. A few tiny echogenic foci are noted within the kidney which either represent tiny nonobstructing calculi versus vascular reflections. There is no hydronephrosis. LEFT KIDNEY: 12.0 x 5.8 x 5.8 cm (SAG x AP x TRV). The kidney is normal in size, contour, and echogenicity. Renal cortical thickness is normal. A few tiny echogenic foci are noted within the kidney which either represent tiny nonobstructing calculi versus vascular reflections. There is no hydronephrosis. US/US renal BI IMPRESSION: A few tiny echogenic foci are noted within both kidneys which either represent tiny nonobstructing calculi versus vascular reflections. There is no hydronephrosis of either kidney. Electronically signed by: Unruly Roman MD 04/03/2024 07:27 AM EDT
== END 2024-03-17 10:24 | disposition home or self-care (01) ==
LOC: HO.US 10:23
PROVIDERS: PCP Internal Medicine; Visit Provider Urology
DX: N20.0 Calculus of kidney (principal)
CPT/HCPCS: 76775

== ENCOUNTER 2024-04-28 14:08 | Outpatient (AMB) | payer OTHER, SELFPAY ==
[2024-04-28 14:12] VITALS: BP 118/60; PULSE 60; BMI 31.0
--- NOTE | 2024-04-28 14:12 | A.OFFVIS_ITS ---
Vital Signs 04/28/24 14:12 Height 5 ft 6 in Weight 191 lb 12.835 oz BMI 31.0 BP 118/60 Blood Pressure Location Lt brachial Position Sitting Pulse 60 Pulse Source Pulse Oximeter Intake Visit Reasons: 2 mth s/p echo Intake Note: 2 mth f/up-echo [employer] Required: No Accompanied by: Self / Same As Patient Allergies No Known Allergies Allergy (Verified 02/27/24 14:34) Medication List - Last Reconciled 04/28/24 by Patrick Cunningham MD apixaban (Eliquis) 5 mg PO BID 90 days aspirin 81 mg PO DAILY atenolol 50 mg PO DAILY 90 days atorvastatin 80 mg PO BEDTIME blood sugar diagnostic (FreeStyle Lite Strips) USE TO TEST BLOOD SUGAR ONCE DAILY citalopram 10 mg PO DAILY dapagliflozin propanediol (Farxiga) 10 mg PO DAILY escitalopram oxalate 10 mg PO DAILY 30 days ezetimibe (Zetia) 10 mg PO DAILY losartan 25 mg PO DAILY metformin 1,000 mg PO BID omeprazole 40 mg (2 x 20 mg) PO DAILY sitagliptin phosphate (Januvia) 100 mg PO DAILY HPI Comments Details: Pleasant 63-year-old gentleman with background history of diabetes type 2, hypertension, hyperlipidemia, coronary artery bypass surgery in 1999 when he had BLAKE to LAD, vein graft to diagonal, vein graft to obtuse marginal and radial graft to right coronary artery who came with chest discomfort in September to [facility] with ST depressions and T-wave inversion in the precordial leads. He was taken urgently for cardiac catheterization which showed occluded vein graft to diagonal and severe stenosis of the vein graft to OM. His radial graft to RCA and BLAKE to LAD were open. He had drug-eluting stent placed to the vein graft. There was a small thrombus noticed inside the stent angiographically as well as with intravascular ultrasound. He was on Integrilin for 4-6 hours after the procedure. He did well and has been doing fine since then. Echocardiography has shown normal EF 55-60% with diastolic dysfunction, elevated filling pressures and inferoseptal wall hypokinesis. Mild dilation of ascending aorta was also noticed. Taking medications regularly. He is here for follow-up today. He is reporting that he was admitted at [facility] with palpitations. He was told that he is dehydrated. He is describing that his heart skips beats and when he puts the pulse ox his heart rate jumped between 90s to 110s. There was concern for atrial fibrillation admitted a cardiac event monitor which showed atrial fibrillation. Since then he has been started on apixaban. On follow-up today he has been doing well. Denies chest pain or palpitations. Overall taking medications regularly without any significant issues. No bleeding concerns. 03/19/23: He is here for follow-up. Clinically stable. Denying chest disc omfort shortness of breath. No palpitations. No bleeding concerns. Tolerating medications well. 08/20/23: He returns for follow-up. He has been doing well. No chest discomfort shortness breath. Taking medications regularly. 02/18/24: He is here for follow-up. He has been doing well without any exertional chest discomfort shortness of breath. No dizziness or syncope. EKG in the office today showing right bundle-branch block which is new with precordial T-wave inversions. He also has somewhat poor R-wave progression in the lateral leads. Clinically he is denying any symptoms. He is on atenolol 50 mg twice a day. 04/28/2024: He is here for follow-up. On last visit he had right bundle-branch block with T-wave inversions on the ECG. He underwent echocardiography which showed normal biventricular function without any regional wall motion abnormalities. Early April he was at [facility] with AFib with RVR and underwent cardioversion in the emergency department. He has not had any further episodes of atrial fibrillation since then. Denying anginal symptoms. Has been walking and exercising regularly without any problems. [facility] Medical History (Updated 04/02/24 @ 10:06 by Patrick Cunningham MD) Generalized anxiety disorder Coronary artery disease Diabetes mellitus Surgical History H/O heart bypass surgery Family History Father No problems noted. Mother No problems noted. Social History Household Members: Family Housing: Apartment Alcohol intake: never Patient Tobacco Use Status: Never used Tobacco e-Cigarette/Vaping Use: Never Used Second Hand Smoke Exposure: No service: No Current occupational status: unemployed Cognitive needs: No Hearing needs: No Vision needs: Yes (glasses) Review of Systems Const Denies chills, Denies fatigue, Denies fever(s), Denies frequent falls, Denies weakness, Denies weight gain and Denies weight loss ENT Denies dizziness Card Denies chest pain, Denies leg edema, Denies lightheadedness, Denies palpitations, Denies dyspnea and Denies dyspnea on exertion Resp Denies cough, Denies dyspnea and Denies dyspnea on exertion GI Denies hematochezia Musc Denies abnormal gait, Denies muscle weakness, Denies numbness, Denies radiating pain into limb and Denies tingling Neuro Denies abnormal gait, Denies dizziness, Denies frequent falls, Denies numbness, Denies tingling and Denies weakness Endo Denies fatigue and Denies palpitations Physical Exam Vital Signs: Last Vital Signs Pulse 60 04/28/24 14:12 BP 118/60 04/28/24 14:12 BMI result Body Mass Index 31.0 GENERAL APPEARANCE: in no acute distress, well developed, well nourished. NECK/THYROID: no carotid bruit, no jugular venous distention. SKIN: Midline sternotomy scar. Left radial harvest scar. HEART: Systolic murmur aortic area, bradycardic. LUNGS: clear to auscultation bilaterally. ABDOMEN: normal, bowel sounds present, soft, nontender, nondistended. EXTREMITIES: no clubbing, cyanosis, or edema. PERIPHERAL PULSES: equal. NEUROLOGIC: nonfocal, alert and oriented. PSYCH: mood/affect full range. Assessment & Plan Assessment & Plan (1) Essential hypertension: Code(s): I10 - Essential (primary) hypertension Category: Medical (2) RBBB: Code(s): I45.10 - Unspecified right bundle-branch block Category: Medical (3) Stable angina: Code(s): I20.8 - Other forms of angina pectoris Category: Medical (4) Paroxysmal atrial fibrillation: Code(s): I48.0 - Paroxysmal atrial fibrillation Category: Medical Plan [age] year gentleman who is here for follow-up. He has known history of coronary artery disease with previous bypass surgery. He had episodes of paroxysmal atrial fibrillation. He recently was in the ER where he was cardioverted. He has right bundle-branch block and previously was bradycardic. His atenolol dose was decreased to 25 mg twice a day. Clinically stable currently. I have advised him to continue to monitor heart rate for now. If he has recurrent episode of atrial fibrillation then we will consider anticoagulation and I will start him on Multaq and we will drop the dose of atenolol to 25 mg once a day. Stable angina. Follow-up in 4 months. Thank you for allowing me to participate in the care of your patient. Please feel free to contact me if you have any questions. Medications: Changed From losartan 25 mg PO DAILY 90 tabs 3RF I10 - Essential (primary) hypertension To losartan 25 mg PO BID 120 tabs 3RF I10 - Essential (primary) hypertension From atenolol 50 mg PO DAILY 90 days 90 tabs 3RF I25.10 - Atherosclerotic heart disease of [place] coronary artery without angina pectoris To atenolol 25 mg (1/2 x 50 mg) PO BID 90 days 90 tabs 3RF I25.10 - Atherosclerotic heart disease of [place] coronary artery without angina pectoris Coding Level of Care Code Est Pt Level 4 (73772) Diagnoses Essential hypertension I10 RBBB I45.10 Stable angina I20.8 Paroxysmal atrial fibrillation I48.0
== END 2024-04-28 14:31 | disposition home or self-care (01) ==
PROVIDERS: PCP Internal Medicine; Visit Provider Internal Medicine Cardiovascular Disease
DX: I10 Essential (primary) hypertension (principal); I45.10 Unspecified right bundle-branch block; I20.89 Other forms of angina pectoris; I48.0 Paroxysmal atrial fibrillation
CPT/HCPCS: 99214

== ENCOUNTER → 2024-04-28 14:08 | Outpatient (BNVA) | payer OTHER, SELFPAY | PROVIDERS: PCP Internal Medicine; Visit Provider Internal Medicine Cardiovascular Disease | DX: I10 Essential (primary) hypertension (principal); I25.118 Atherosclerotic heart disease of native coronary artery with other forms of angina pectoris; I45.10 Unspecified right bundle-branch block; I48.91 Unspecified atrial fibrillation; I48.0 Paroxysmal atrial fibrillation; E78.5 Hyperlipidemia, unspecified; Z95.1 Presence of aortocoronary bypass graft | CPT/HCPCS: 99212 ==

== ENCOUNTER 2024-05-15 08:16 | Day surgery (SDC) | payer OTHER, SELFPAY ==
[2024-05-13 12:51] VITALS: BMI 31.0
--- NOTE | 2024-05-14 10:35 | HO.ANESPROP2 ---
Documented by User: Tanesha Walden NP 05/14/24 10:43 HPI - Anesthesia Eval Consult details Narrative: 63yo M for Upper Endoscopy and Colonoscopy Follows [facility] Cardiology: CAD s/p CABG and stent in 1999. afib Last office visit 04/2024 for f/u after ECHO (ordered d/t EKG changes). Also had [facility] admit with afib RVR, cardioverted. On eliquis. Anesthesia Pre-Procedure Meds Is the patient on any of the following meds?: GLP1/DPP4 and SGLT2 Inhib PMFSH Active Problems Active Problems: All Active Problems Essential hypertension (Acute) RBBB (Acute) Acid reflux (Acute) Rectal bleeding (Acute) Infected sebaceous cyst (Acute) Memory impairment (Acute) Subcutaneous abscess (Acute) Chronic lower back pain (Acute) Obesity (BMI 30.0-34.9) (Acute) Preop cardiovascular exam (Acute) Nephrolithiasis (Acute) Paroxysmal atrial fibrillation (Acute) Renal cyst (Acute) Sleep disorder breathing (Acute) Palpitations (Acute) Osteoarthritis of hand (Acute) BPH associated with nocturia (Acute) Stable angina (Acute) Anticoagulant long-term use (Acute) Screening for colon cancer (Acute) Generalized anxiety disorder (Acute) Coronary artery disease (Acute) Diabetes mellitus (Acute) Past Medical History Medical History Stable angina RBBB (right bundle branch block) BPH (benign prostatic hyperplasia) Osteoarthritis Atrial fibrillation Generalized anxiety disorder Coronary artery disease Diabetes mellitus Family History Family History Father No problems noted. Mother No problems noted. Surgical History Surgical History Hx of heart artery stent H/O heart bypass surgery Social History Social History Household Members: Family Housing: Apartment Alcohol intake: never Patient Tobacco Use Status: Never used Tobacco e-Cigarette/Vaping Use: Never Used Second Hand Smoke Exposure: No Have you been hit, kicked, punched, or otherwise hurt by someone within the past year? If so, by whom?: No Are you DNR?: No Advance Directives: No Advance Directives Information Provided: Yes service: No Current occupational status: unemployed Cognitive needs: No Hearing needs: No Vision needs: Yes (glasses) Meds Allergies Allergy/AdvReac Type Severity Reaction Status Date / Time No Known Allergies Allergy Verified 02/27/24 14:34 Exam Height,Weight and Vital Signs: Height 5 ft 6 in Weight 87.09 kg Pertinent Lab Results Pertinent Lab Results: Laboratory Tests 02/19/24 12:01 WBC 10.2 Hgb 14.4 Hct 44.8 Plt Count 222 Sodium 137 Potassium 4.3 Chloride 103 Carbon Dioxide 24 BUN 14 Creatinine 1.01 Narrative Narrative: ECHO 03/2024 Conclusions: - Normal left ventricular size, thickness, systolic function, and wall motion. The visually estimated ejection fraction is between 55-60%. There is no evidence of regional wall motion abnormalities. Abnormal diastolic function is noted. Spectral Doppler is indicative of a pseudonormal filling pattern. Elevated filling pressures. - Normal right ventricular cavity size. There is mildly decreased right ventricular systolic function. - There is mild dilatation of the ascending aorta measuring 3.60 cm. EKG 02/2024 Sinus bradycardia 59 beats per minute, left axis deviation, inferior infarct, precordial T-wave inversions with right bundle-branch block, can not rule out anterolateral infarct, QTC 455 milliseconds. Assessment and Plan Assessment Anesthesia Assessment: Chart Reviewed Documented by User: Sofia Howell MD 05/15/24 09:39 PMFSH Past Medical History Medical History Stable angina RBBB (right bundle branch block) BPH (benign prostatic hyperplasia) Osteoarthritis Atrial fibrillation Generalized anxiety disorder Coronary artery disease Diabetes mellitus Family History Family History Father No problems noted. Mother No problems noted. Family history of problems with anesthesia: No Surgical History Surgical History Hx of heart artery stent H/O heart bypass surgery History of Problems with Anesthesia: No Social History Social History Household Members: Family Housing: Apartment Alcohol intake: never Patient Tobacco Use Status: Never used Tobacco e-Cigarette/Vaping Use: Never Used Second Hand Smoke Exposure: No Have you been hit, kicked, punched, or otherwise hurt by someone within the past year? If so, by whom?: No Are you DNR?: No Advance Directives: No Advance Directives Information Provided: Yes service: No Current occupational status: unemployed Cognitive needs: No Hearing needs: No Vision needs: Yes (glasses) Meds Allergies Allergy/AdvReac Type Severity Reaction Status Date / Time No Known Allergies Allergy Verified 02/27/24 14:34 Exam Airway Mallampati Class: III TM Dist: >3cm Neck ROM: Full Heart: rrr Lungs: cta Assessment and Plan Assessment Anesthesia Assessment: Anesthesia Plan Discussed Final Anesthetic Review Family History of Problems with Anesthesia: No History of Problems with Anesthesia: No NPO: Yes ASA Class: III Final Preanesthetic Review: No Changes in Pt Med Stat, Meds/Allgs Chart Reviewed and Consent Obtained/Reviewed Patient Risk: Intermediate Procedure Risk: Low Anesthetic Plan Anesthetic Plan: MAC: Disposition: Standard PACU
[2024-05-15 09:21] VITALS: BP 140/88; PULSE 52; RESP 18; TEMP 36.9; O2SAT 97; BMI 31.0
[2024-05-15 09:37] LABS: Glucose, Whole Blood 137 mg/dL (60-115)
[2024-05-15] MEDS: Lactated Ringers 1,000 ML 80 ML IVCONT (09:47)
--- NOTE | 2024-05-15 10:48 | P.HPSUR_ITS ---
Pre-Procedural Eval Section A - 24 Hr Update-Section A only Date of Service: 05/15/24 Section B - Complete if H&P > 30 days Chief Complaint: Gastro-esophageal reflux disease without esophagit Relevant Family History (Specify if Yes): No Relevant Social History: None Present Medications: see Short Stay Collaborative assessment Medical History: Significant History (Stable angina RBBB (right bundle branch block) BPH (benign prostatic hyperplasia) Osteoarthritis Atrial fibrillation Generalized anxiety disorder Coronary artery disease Diabetes mellitus) History of Previous Operations: Relevant previous surgery/procedure and date(s) (Hx of heart artery stent H/O heart bypass surgery) Allergies: Allergies Allergy/AdvReac Type Severity Reaction Status Date / Time No Known Allergies Allergy Verified 02/27/24 14:34 Review of Systems Sugical H&P ROS: Negative: Constitution, Cardiovascular, Respiratory, Neurological, Psychiatric, Hem-Onc, Allergic/Immunologic, Gastrointestinal, Genitourinary, Musculoskeletal, Integumentary, Endocrine and Eyes/Ears/Nose/ Throat Exam Surgical H&P Exam: Normal: HEENT, Normal: Heart, Normal: Lungs, Normal: Extremities, Normal: Abdomen, Normal: Skin and Normal: Neurological Plan Diagnosis/Plan: Unchanged I have reviewed the history and physical and performed a pertinent physical examination on my patient. No changes have occurred unless specified. Time Spent With Patient Time: Total time managing care of this patient today ____ minutes.
--- NOTE | 2024-05-15 11:16 | P.OPN-COLO_ITS ---
Colonoscopy Operative Note Operative Note Date of Service: 05/15/24 Narrative: Operative Information Procedure Description: EGD, Colonoscopy Indication: screening, GERD Anesthesia: MAC FLEXIBLE TRANSORAL UPPER GASTROINTESTINAL ENDOSCOPY AND COLONOSCOPY PROCEDURE NOTE UPPER ENDOSCOPY Consent: Indications for the procedure and potential complications of bleeding, perforation, reaction to medications and missed diagnosis were discussed with the patient and informed consent was obtained. Instrument: Olympus GIF H 190 J mid size upper endoscope Monitoring: Vital signs and clinical assessment, continuous EKG monitoring, Pulse oximetry, Carbon Dioxide monitoring and blood pressure monitoring were done throughout the procedure. Procedure: The patient was placed in the left lateral decubitis position and pre-procedure medications were administered and a bite block was placed. The endoscope was inserted into the mouth and advanced under direct vision to the third part of duodenum. A careful inspection was made as the upper endoscope was withdrawn including a retroflexed examination of the proximal stomach; Findings and interventions are described below. Findings: Larynx:normal Esophagus: GE junction at 38 cm, diaphragm hiatus at 38 cm, normal mucosa Stomach: Patchy erythema. Biopsies were obtained. Grade 2 flap valve on retroflexed examination of the cardia. Duodenum: Normal bulb and descending duodenum, bx taken Intervention: Biopsies as noted above, COLONOSCOPY Instrument: Olympus variable stiffness pediatric scope 190L Colonoscopy Monitoring: Vital signs and clinical assessment, continuous EKG monitoring, Pulse oximetry, Carbon Dioxide monitoring and blood pressure monitoring were done throughout the procedure. Colon withdrawal time was 10 minutes. Procedure: The patient was placed in the left lateral decubitis position and pre-procedure medications were administered. After a digital rectal examination of the ano-rectum, the video colonoscope was inserted into the rectum and advanced through the colon to the cecum/TI. The colonoscope was slowly withdrawn in a retrograde panoramic fashion and the colon mucosa was carefully examined including a retroflexed view of the rectum. Findings and interventions are described below. Procedure Difficulty:moderate Findings: Terminal Ileum-normal Cecum:normal Ascending Colon: normal Transverse Colon -normal Descending Colon:normal Sigmoid Colon: normal Rectum: Retroflexion with small internal hemorrhoids, grade I Anorectum - normal, skin tag noted Colon preparation: Newcomb Bowel Preparation Scale Right colon; 2 Transverse colon: 2 Left colon; 2 (0 = Unprepared colon segment with mucosa not seen due to solid stool that cannot be cleared. 1 = Portion of mucosa of the colon segment seen, but other areas of the colon segment not well seen due to staining, residual stool and/or opaque liquid. 2 = Minor amount of residual staining, small fragments of stool and/or opaque liquid, but mucosa of colon segment seen well. 3 = Entire mucosa of colon segment seen well with no residual staining, small fragments of stool or opaque liquid) Impression and Post Procedure Diagnosis: Endoscopy Findings: gastritis Colonoscopy Findings: internal hemorrhoids Plan: Await Pathology results Repeat Colonoscopy in 10 years or earlier if clinically indicated High fiber diet leaflet avoid straining at stool, epsom salts and sitz bath, anusol supps or cream can restart apixiban, aspirin tomorrow Above findings were reviewed with the patient and relevant handouts were provided if indicated.
[2024-05-15 11:22] VITALS: BP 88/50; PULSE 72; RESP 16; TEMP 36.2; O2SAT 94
[2024-05-15 11:35] VITALS: BP 104/65; PULSE 61; RESP 16; O2SAT 96
[2024-05-15 11:49] VITALS: BP 109/61; PULSE 64; RESP 16; TEMP 36.1; O2SAT 96
== END 2024-05-15 12:16 | disposition home or self-care (01) ==
PROVIDERS: PCP Internal Medicine; Visit Provider Internal Medicine Gastroenterology
PROC: (CPT 45378; principal; 2024-05-15 10:50)
DX: Z12.11 Encounter for screening for malignant neoplasm of colon (principal); K64.0 First degree hemorrhoids; K64.4 Residual hemorrhoidal skin tags; K21.9 Gastro-esophageal reflux disease without esophagitis; K62.5 Hemorrhage of anus and rectum; K29.50 Unspecified chronic gastritis without bleeding; K44.9 Diaphragmatic hernia without obstruction or gangrene; E11.9 Type 2 diabetes mellitus without complications; I48.91 Unspecified atrial fibrillation; I25.10 Atherosclerotic heart disease of native coronary artery without angina pectoris; Z95.1 Presence of aortocoronary bypass graft; Z79.01 Long term (current) use of anticoagulants; Z79.82 Long term (current) use of aspirin; Z79.84 Long term (current) use of oral hypoglycemic drugs; Z79.899 Other long term (current) drug therapy; Z56.0 Unemployment, unspecified
CPT/HCPCS: 45378; 43239; 82947; 88305; 88342; J1100; J1596; J2003; J2704

== ENCOUNTER → 2024-05-15 08:16 | Outpatient (BNV) | payer OTHER, SELFPAY | PROVIDERS: PCP Internal Medicine; Visit Provider Internal Medicine Gastroenterology | DX: Z12.11 Encounter for screening for malignant neoplasm of colon (principal); K64.0 First degree hemorrhoids; K64.4 Residual hemorrhoidal skin tags; K21.00 Gastro-esophageal reflux disease with esophagitis, without bleeding; K29.70 Gastritis, unspecified, without bleeding | CPT/HCPCS: 43239; 45378 ==

== ENCOUNTER 2024-07-02 14:52 | Outpatient (AMB) | payer OTHER, SELFPAY ==
--- NOTE | 2024-07-02 14:54 | A.OFFPC_ITS ---
Vital Signs 07/02/24 14:55 Height 5 ft 6 in Weight 186 lb 6 oz BMI 30.1 BP 110/72 Blood Pressure Location Lt brachial Position Sitting Pulse 69 Pulse Source Pulse Oximeter Pulse Oximetry (%) 97 Oxygen Delivery Method Room Air Intake Visit Reasons: 3 month follow up Intake Note: Patient is here to follow up on DM, HTN, PAfib. Structural Architect Required: No Mail Order Biller: Not Required per policy Accompanied by: Self / Same As Patient Allergies No Known Allergies Allergy (Verified 07/02/24 14:55) Tobacco use date assessed: 07/02/24 Fall risk assessment: No Falls in past year Last assessed Fall Risk: 07/02/24 Dental Screening Dental Screen Date: 10/25/23 [facility] Medical History Stable angina RBBB (right bundle branch block) BPH (benign prostatic hyperplasia) Osteoarthritis Atrial fibrillation Generalized anxiety disorder Coronary artery disease Diabetes mellitus Surgical History (Updated 07/02/24 @ 15:03 by LYUBOV Gilliam) History of endoscopy History of colonoscopy Hx of heart artery stent H/O heart bypass surgery Family History Father No problems noted. Mother No problems noted. Social History Household Members: Family Housing: Apartment Alcohol intake: never Patient Tobacco Use Status: Never used Tobacco e-Cigarette/Vaping Use: Never Used Second Hand Smoke Exposure: No service: No Current occupational status: unemployed Cognitive needs: No Hearing needs: No Vision needs: Yes (glasses) Questionnaire Thrive Questionnaire Date Thrive assessed: 09/06/23 ELENA-7 AMB Questionnaire ELENA-7 Date ELENA - 7 assessed: 09/06/23 Source: Developed by Drs. Abelardo Patrick, Jazmine Kingston, Jan Gregorio and colleagues, with an educational angela from [employer]. Physical exam (Primary Care) Vital Signs: Last Vital Signs Pulse 69 07/02/24 14:55 BP 110/72 07/02/24 14:55 Pulse Ox 97 07/02/24 14:55 Oxygen Delivery Method Room Air 07/02/24 14:55 BMI result Body Mass Index 30.1 Tobacco/Smoking Status: Tobacco use Status Tobacco use date assessed 07/02/24 07/02/24 15:05 Patient Tobacco Use Status Never used Tobacco 07/02/24 15:05 e-Cigarette/Vaping Use Never Used 07/02/24 15:05 Thrive Assessment: Date of Thrive Assessment Date Thrive assessed 09/06/23 07/02/24 15:05 Results AMB Hemoglobin A1c AMB Hemoglobin A1c 7.5 % Last Edit by LYUBOV Gilliam on 07/02/24 15:06 Results Reviewed Results Reviewed: Laboratory Last Values Hgb A1c (Clinic) 7.5 % (4.0-6.0) H 07/02/24 14:54 Coding Level of Care Code Est Pt Level 4 (39545) Complex EM visit Add On G2211 Diagnoses Essential hypertension I10 Assessment & Plan Assessment & Plan (1) Essential hypertension: Code(s): I10 - Essential (primary) hypertension Category: Medical Plan: See below Orders: Orders AMB Hemoglobin A1c Today E11.9 - Type 2 diabetes mellitus without complications Medications: Refilled aspirin 81 mg PO DAILY 90 tabs 3RF citalopram 10 mg PO DAILY 60 tabs 0RF ezetimibe (Zetia) 10 mg PO DAILY 90 tabs 3RF omeprazole 40 mg (2 x 20 mg) PO DAILY 180 caps 1RF blood sugar diagnostic (FreeStyle Lite Strips) USE TO TEST BLOOD SUGAR ONCE DAILY 100 strips 0RF apixaban (Eliquis) 5 mg PO BID 180 tabs 5RF 90 days I48.0 - Paroxysmal atrial fibrillation atorvastatin 80 mg PO BEDTIME 90 tabs 3RF escitalopram oxalate 10 mg PO DAILY 30 tabs 0RF 30 days sitagliptin phosphate (Januvia) 100 mg PO DAILY 90 tabs 0RF Scribe Plan - Not visible on output: History of Present Illness The patient is a 63-year-old male presenting with a follow-up visit for the management of Major Depressive Disorder and Type 2 Diabetes Mellitus. His depressive symptoms have improved significantly since the adjustment of his antidepressant medication to citalopram. He reports being able to function well and notes that the medication has been beneficial. The patient has been c ompliant with his medication regimen and has not experienced any issues with adherence. He emphasizes the importance of continuing the medication, even when traveling. Regarding Type 2 Diabetes Mellitus, the patient's Hemoglobin A1c remains at 7.5%, indicating that glycemic control has not improved appreciably. He adheres to a healthy diet and engages in regular exercise, reporting his blood glucose levels typically range from 137 to 140 mg/dL postprandial, with no readings exceeding 200 mg/dL. He denies any hypoglycemic episodes since the last visit. 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 - Physical Activity: Engages in regular exercise. - Dietary Habits: Reports following a healthy diet. - Family: Mentioned having a nephew. - Travel: No recent trips to [facility]. Review of Systems - Constitutional: Denies other significant systemic complaints. - Musculoskeletal: Reports occasional body aches. Physical Exam - Cardiovascular- Breathing assessed and noted to be normal. Results - Labs: HbA1c is currently at 7.5%. Plan - Major Depressive Disorder: Continue citalopram. Reinforce the importance of medication adherence even during travel to prevent recurrence of symptoms. - Type 2 Diabetes Mellitus: Encourage continued lifestyle modifications, including diet and exercise. Monitor blood glucose levels and plan for a follow- up lab visit in three months to reassess A1c. - Preventive Care: Flu and herpes zoster vaccinations administered at [facility]. No additional vaccines needed at this time. Patient was informed and verbally consented to the use of an ambient scribe for clinic note documentation during this visit. Discussion Notes During the visit, we discussed the management of Major Depressive Disorder with citalopram and the patient's positive response to the medication. I emphasized the importance of medication adherence, particularly when traveling, to prevent symptom recurrence. For Type 2 Diabetes Mellitus, we discussed his current glycemic control and lifestyle modifications. The patient is aware of the need to continue monitoring his blood sugar levels and maintain his exercise routine. We also reviewed his recent vaccinations and confirmed that he received both influenza and herpes zoster vaccines. We agreed on a follow-up appointment in three months, during which we will reassess his HbA1c and make any necessary adjustments to his management plan. Patient Instructions - Continue taking citalopram as prescribed. - Maintain a healthy diet and regular exercise routine. - Monitor blood glucose levels regularly and report any significant changes. - Ensure medication supply is adequate for travel. - Schedule a follow-up appointment in three months for further evaluation.
[2024-07-02 14:55] VITALS: BP 110/72; PULSE 69; O2SAT 97; BMI 30.1
== END 2024-07-02 15:28 | disposition home or self-care (01) ==
PROVIDERS: PCP Internal Medicine; Visit Provider Internal Medicine
DX: I10 Essential (primary) hypertension (principal); E11.9 Type 2 diabetes mellitus without complications

== ENCOUNTER → 2024-07-02 14:52 | Outpatient (BNVA) | payer OTHER, SELFPAY | PROVIDERS: PCP Internal Medicine; Visit Provider Internal Medicine | DX: I10 Essential (primary) hypertension (principal); E11.9 Type 2 diabetes mellitus without complications | CPT/HCPCS: 83036; 99212 ==

== ENCOUNTER 2024-08-15 10:51 | Outpatient (AMB) | payer OTHER, SELFPAY ==
--- NOTE | 2024-08-15 10:57 | MHC.OFFVIS ---
Intake Visit Reasons: 1Y PVR/US(Set) Intake Note: Pt presents to the office today for a 1 year follow up PVR/US. PVR-0mL Allergies No Known Allergies Allergy (Verified 08/15/24 10:57) HPI Comments Details: Rei is a pleasant [place] male. He is a patient of . He is seen for the following urologic conditions - lower urinary tract symptoms - renal cyst - nephrolithiasis Has 3+ glucose in urine secondary to diabetic medications Kidneys normal on ultrasound reimaging Minimal nocturia Lower urinary tract symptoms Initial evaluation with urgency particularly when running water and change of temperature Current symptoms have resolved Associated conditions include diabetes - on SGLT2 Did have some benefit with tamsulosin but not enough to continue medication Renal cyst Found during imaging early 2020 17 mm simple cyst left kidney Imaging - 03/27 small stones 6 mm right kidney PFSH Medical History Stable angina RBBB (right bundle branch block) BPH (benign prostatic hyperplasia) Osteoarthritis Atrial fibrillation Generalized anxiety disorder Coronary artery disease Diabetes mellitus Surgical History History of endoscopy History of colonoscopy Hx of heart artery stent H/O heart bypass surgery Family History Father No problems noted. Mother No problems noted. Social History Household Members: Family Housing: Apartment Alcohol intake: never Patient Tobacco Use Status: Never used Tobacco e-Cigarette/Vaping Use: Never Used Second Hand Smoke Exposure: No service: No Current occupational status: unemployed Cognitive needs: No Hearing needs: No Vision needs: Yes (glasses) Review of Systems Const Denies chills and Denies fever(s) Card Reports no additional complaints and Denies syncope Resp Denies cough GI Denies abdominal pain and Denies heartburn Reports as per HPI and Denies change in libido Neuro Denies syncope Psych Denies change in libido Endo Denies change in libido Physical Exam Const General: cooperative, healthy appearing, comfortable and no acute distress Orientation/consciousness: patient oriented x3 HEENT Face and sinus: Yes normal facial exam Mouth: moist mucous membranes Neck Neck: Yes normal visual inspection, Yes full ROM and Yes trachea midline Chest Chest palpation & inspection: normal inspection of the chest Resp Effort & Inspection: normal respiratory effort, able to speak in complete sentences and no respiratory distress GI Inspection: Yes normal to inspection Back/Spine/Pelvis Cervical Spine: normal cervical lordosis Thoracic/Lumbar Spine: thoracic and lumbar spine normal to inspection Skin General skin exam: no rashes or lesions noted Neuro General: patient oriented x3, gait normal, tone normal and moves all extremities Extrem General: Yes normal to inspection and Yes capillary refill normal Office Procedures Post Void Residual Post Residual Void Post Void Residual (PVR): 0 [id number] Void Residual by ultrasound Results AMB Urinalysis, Automated UA Leukoctes 0 Contreras/uL Last Edit by Rani Mendez CMA on 08/15/24 11:06 UA Nitrite Negative Last Edit by Rani Mendez CMA on 08/15/24 11:06 UA Urobilinogen 0.2 mg/dL Last Edit by Rani Mendez CMA on 08/15/24 11:06 UA Protein 15 mg/dL Last Edit by Rani Mendez CMA on 08/15/24 11:06 UA pH 6.0 Last Edit by Rani Mendez CMA on 08/15/24 11:06 UA Blood 0 Rene/uL Last Edit by Rani Mendez CMA on 08/15/24 11:06 UA Specific [place] 1.015 Last Edit by Rani Mendez CMA on 08/15/24 11:06 UA Ketone Negative Last Edit by Rani Mendez CMA on 08/15/24 11:06 UA Bilirubin 0 mg/dL Last Edit by Rani Mendez CMA on 08/15/24 11:06 UA Glucose 1000 mg/dL Last Edit by Rani Mendez CMA on 08/15/24 11:06 Results Reviewed Results Reviewed: Laboratory Last Values Urine pH (Auto) 6.0 08/15/24 11:00 Specific [place] (Auto) 1.015 08/15/24 11:00 Urine Protein (Auto) 15 mg/dL 08/15/24 11:00 Glucose (UA)(Auto) 1000 mg/dL 08/15/24 11:00 Urine Ketones (Auto) Negative 08/15/24 11:00 Urine Blood (Auto) 0 Rene/uL 08/15/24 11:00 Urine Nitrite (Auto) Negative 08/15/24 11:00 Urine Bilirubin (Auto) 0 mg/dL 08/15/24 11:00 Urine Urobilinogen (Auto) 0.2 mg/dL 08/15/24 11:00 Leukocyte Esterase (Auto) 0 Contreras/uL 08/15/24 11:00 Assessment & Plan Assessment & Plan (1) Nephrolithiasis: Code(s): N20.0 - Calculus of kidney Category: Medical (2) BPH associated with nocturia: Code(s): N40.1 - Benign prostatic hyperplasia with lower urinary tract symptoms; R35.1 - Nocturia Category: Medical Plan 12 month follow-up renal ultrasound Orders: Orders AMB Urinalysis Automated Today N40.1 - Benign prostatic hyperplasia with lower urinary tract symptoms, R35.1 - Nocturia AMB Post Void Residual by ultrasound Today N40.1 - Benign prostatic hyperplasia with lower urinary tract symptoms, R35.1 - Nocturia US renal BI 12 Months N20.0 - Calculus of kidney Patient Instructions: Imaging studies, laboratory and physical exam results were discussed and reviewed in detail. No major barriers to patient understanding were identified. An opportunity to ask questions regarding the treatment plan was provided. All questions were answered. The patient expressed understanding and agreement with the above treatment plan. The patient is aware they should contact our office by phone for worsening of their current condition or the appearance of new urologic symptoms. Compliance is encouraged with any medications and followup testing that is ordered. It is a privilege to participate in the urologic care of your patient. If you have any questions or concerns regarding treatment for the above conditions, or other urologic issues, please do not hesitate to contact me. The office telephone contact is [phone]. This note is constructed using voice recognition software. While every effort has been made to ensure accuracy c python developer errors may have been included. Yours sincerely, Dr Junior Edgar MD, [facility] - Urology Providers of Expert, Compassionate Care for the Genitourinary System Coding Level of Care Code Est Pt Level 4 (42901) Diagnoses Nephrolithiasis N20.0 BPH associated with nocturia N40.1; R35.1 CPT Codes Post Residual Void - PVR CPT Code: 81285-[id number] Void Residual by ultrasound ([id number])
== END 2024-08-15 13:47 | disposition home or self-care (01) ==
PROVIDERS: PCP Internal Medicine; Visit Provider Urology
DX: N20.0 Calculus of kidney (principal); N40.1 Benign prostatic hyperplasia with lower urinary tract symptoms; R35.1 Nocturia
CPT/HCPCS: 99214

== ENCOUNTER → 2024-08-15 10:51 | Outpatient (BNVA) | payer OTHER, SELFPAY | PROVIDERS: PCP Internal Medicine; Visit Provider Urology | DX: N40.1 Benign prostatic hyperplasia with lower urinary tract symptoms (principal); R35.1 Nocturia; N20.0 Calculus of kidney | CPT/HCPCS: 51798; 81003; 99212 ==

== ENCOUNTER 2024-08-27 13:58 | Outpatient (AMB) | payer OTHER, SELFPAY ==
[2024-08-27 14:04] VITALS: BP 130/64; PULSE 61; BMI 29.3
--- NOTE | 2024-08-27 14:04 | A.OFFVIS_ITS ---
Vital Signs 08/27/24 14:04 Height 5 ft 6 in Weight 181 lb 10.574 oz BMI 29.3 BP 130/64 Blood Pressure Location Lt brachial Position Sitting Pulse 61 Pulse Source Pulse Oximeter Intake Visit Reasons: 4 month follow up Intake Note: 4 mth f/up Spine Supervisor Required: No Accompanied by: Self / Same As Patient Allergies No Known Allergies Allergy (Verified 08/15/24 10:57) Medication List - Last Reconciled 08/27/24 by Patrick Cunningham MD apixaban (Eliquis) 5 mg PO BID 90 days aspirin 81 mg PO DAILY atenolol 25 mg (1/2 x 50 mg) PO BID 90 days atorvastatin 80 mg PO BEDTIME blood sugar diagnostic (FreeStyle Lite Strips) USE TO TEST BLOOD SUGAR ONCE DAILY citalopram 10 mg PO DAILY dapagliflozin propanediol (Farxiga) 10 mg PO DAILY escitalopram oxalate 10 mg PO DAILY 30 days ezetimibe (Zetia) 10 mg PO DAILY losartan 25 mg PO BID metformin 1,000 mg PO BID omeprazole 40 mg (2 x 20 mg) PO DAILY sitagliptin phosphate (Januvia) 100 mg PO DAILY HPI Comments Details: Pleasant 64-year-old gentleman with background history of diabetes type 2, hypertension, hyperlipidemia, coronary artery bypass surgery in 1999 when he had BLAKE to LAD, vein graft to diagonal, vein graft to obtuse marginal and radial graft to right coronary artery who came with chest discomfort in September to [facility] with ST depressions and T-wave inversion in the precordial leads. He was taken urgently for cardiac catheterization which showed occluded vein graft to diagonal and severe stenosis of the vein graft to OM. His radial graft to RCA and BLAKE to LAD were open. He had drug-eluting stent placed to the vein graft. There was a small thrombus noticed inside the stent angiographically as well as with intravascular ultrasound. He was on Integrilin for 4-6 hours after the procedure. He did well and has been doing fine since then. Echocardiography has shown normal EF 55-60% with diastolic dysfunction, elevated filling pressures and inferoseptal wall hypokinesis. Mild dilation of ascending aorta was also noticed. Taking medications regularly. He is here for follow-up today. He is reporting that he was admitted at [facility] with palpitations. He was told that he is dehydrated. He is describing that his heart skips beats and when he puts the pulse ox his heart rate jumped between 90s to 110s. There was concern for atrial fibrillation admitted a cardiac event monitor which showed atrial fibrillation. Since then he has been started on apixaban. On follow-up today he has been doing well. Denies chest pain or palpitations. Overall taking medications regularly without any significant issues. No bleeding concerns. 03/19/23: He is here for follow-up. Clinically stable. Denying chest discomfort shortness of breath. No palpitations. No bleeding concerns. Tolerating medications well. 08/20/23: He returns for follow-up. He has been doing well. No chest discomfort shortness breath. Taking medications regularly. 02/18/24: He is here for follow-up. He has been doing well without any exertional chest discomfort shortness of breath. No dizziness or syncope. EKG in the office today showing right bundle-branch block which is new with precordial T-wave inversions. He also has somewhat poor R-wave progression in the lateral leads. Clinically he is denying any symptoms. He is on atenolol 50 mg twice a day. 04/28/2024: He is here for follow-up. On last visit he had right bundle-branch block with T-wave inversions on the ECG. He underwent echocardiography which showed normal biventricular function without any regional wall motion abnormalities. Early April he was at [facility] with AFib with RVR and underwent cardioversion in the emergency department. He has not had any further episodes of atrial fibrillation since then. Denying anginal symptoms. Has been walking and exercising regularly without any problems. 08/27/2024: He is here for follow-up. He has been exercising regularly and goes to gym every day. He is doing 2 hours of cardio and has lost 15 kg. No exertional symptoms whatsoever. No bleeding concerns currently with apixaban. He has not had any further episode of atrial fibrillation. [facility] Medical History Stable angina RBBB (right bundle branch block) BPH (benign prostatic hyperplasia) Osteoarthritis Atrial fibrillation Generalized anxiety disorder Coronary artery disease Diabetes mellitus Surgical History (Updated 08/27/24 @ 14:30 by Patrick Cunningham MD) History of endoscopy History of colonoscopy Hx of heart artery stent H/O heart bypass surgery Family History Father No problems noted. Mother No problems noted. Social History Household Members: Family Housing: Apartment Alcohol intake: never Patient Tobacco Use Status: Never used Tobacco e-Cigarette/Vaping Use: Never Used Second Hand Smoke Exposure: No service: No Current occupational status: unemployed Cognitive needs: No Hearing needs: No Vision needs: Yes (glasses) Review of Systems Const Denies chills, Denies fatigue, Denies fever(s), Denies frequent falls, Denies weakness, Denies weight gain and Denies weight loss ENT Denies dizziness Card Denies chest pain, Denies leg edema, Denies lightheadedness, Denies palpitat ions, Denies dyspnea and Denies dyspnea on exertion Resp Denies cough, Denies dyspnea and Denies dyspnea on exertion GI Denies hematochezia Musc Denies abnormal gait, Denies muscle weakness, Denies numbness, Denies radiating pain into limb and Denies tingling Neuro Denies abnormal gait, Denies dizziness, Denies frequent falls, Denies numbness, Denies tingling and Denies weakness Endo Denies fatigue and Denies palpitations Physical Exam Vital Signs: Last Vital Signs Pulse 61 08/27/24 14:04 BP 130/64 08/27/24 14:04 BMI result Body Mass Index 29.3 GENERAL APPEARANCE: in no acute distress, well developed, well nourished. NECK/THYROID: no carotid bruit, no jugular venous distention. SKIN: Midline sternotomy scar. Left radial harvest scar. HEART: Systolic murmur aortic area, bradycardic. LUNGS: clear to auscultation bilaterally. ABDOMEN: normal, bowel sounds present, soft, nontender, nondistended. EXTREMITIES: no clubbing, cyanosis, or edema. PERIPHERAL PULSES: equal. NEUROLOGIC: nonfocal, alert and oriented. PSYCH: mood/affect full range. Assessment & Plan Assessment & Plan (1) Essential hypertension: Code(s): I10 - Essential (primary) hypertension Category: Medical (2) RBBB: Code(s): I45.10 - Unspecified right bundle-branch block Category: Medical (3) H/O heart bypass surgery: Comment: 1999 Code(s): Z95.1 - Presence of aortocoronary bypass graft Category: Surgical (4) Paroxysmal atrial fibrillation: Code(s): I48.0 - Paroxysmal atrial fibrillation Category: Medical Plan [age] year gentleman with known history of coronary artery disease with previous bypass surgery and graft PCI presenting for follow-up. He has right bundle-branch block and had episode of paroxysmal atrial fibrillation for which she was cardioverted in the emergency department in the past. He has done well since then and has not had any further recurrence of atrial fibrillation. He is doing quite well and exercising regularly and losing weight. Blood pressure is well controlled. Tolerating Eliquis and aspirin without any bleeding. Follow-up with us in 6 months. Thank you for allowing me to participate in the care of your patient. Please feel free to contact me if you have any questions. Coding Level of Care Code Est Pt Level 4 (60458) Diagnoses Essential hypertension I10 RBBB I45.10 H/O heart bypass surgery Z95.1 Paroxysmal atrial fibrillation I48.0
== END 2024-08-27 14:33 | disposition home or self-care (01) ==
PROVIDERS: PCP Internal Medicine; Visit Provider Internal Medicine Cardiovascular Disease
DX: I10 Essential (primary) hypertension (principal); I45.10 Unspecified right bundle-branch block; Z95.1 Presence of aortocoronary bypass graft; I48.0 Paroxysmal atrial fibrillation
CPT/HCPCS: 99214

== ENCOUNTER → 2024-08-27 13:58 | Outpatient (BNVA) | payer OTHER, SELFPAY | PROVIDERS: PCP Internal Medicine; Visit Provider Internal Medicine Cardiovascular Disease | DX: I10 Essential (primary) hypertension (principal); E78.5 Hyperlipidemia, unspecified; I45.10 Unspecified right bundle-branch block; I48.0 Paroxysmal atrial fibrillation; Z95.1 Presence of aortocoronary bypass graft | CPT/HCPCS: 99212 ==

== ENCOUNTER 2024-12-18 14:34 | Outpatient (AMB) | payer OTHER, SELFPAY ==
--- NOTE | 2024-12-18 14:39 | MHC.PC.OV ---
Vital Signs 12/18/24 14:40 Height 5 ft 6 in Weight 183 lb 8 oz BMI 29.6 BP 112/60 Blood Pressure Location Rt brachial Position Sitting Pulse 61 Pulse Source Pulse Oximeter Temp 97.3 F Temp Source Temporal Artery Scan Pulse Oximetry (%) 98 Oxygen Delivery Method Room Air Intake Visit Reasons: 3 month f/u Intake Note: Patient is here to follow up on DM, HTN, Chronic pain. 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: Not Required per policy Accompanied by: Self / Same As Patient Allergies No Known Allergies Allergy (Verified 12/18/24 14:40) Tobacco use date assessed: 12/18/24 Fall risk assessment: No Falls in past year Last assessed Fall Risk: 12/18/24 Dental Screening Dental Screen Date: 12/18/24 Did you have a dental visit in the last 12 months?: No Did you have a dental problem in the last 6 months where you did not have access to dental care?: No Was dental information given to patient?: Yes [facility] Medical History Stable angina RBBB (right bundle branch block) BPH (benign prostatic hyperplasia) Osteoarthritis Atrial fibrillation Generalized anxiety disorder Coronary artery disease Diabetes mellitus Surgical History History of endoscopy History of colonoscopy (~05/15/24) Hx of heart artery stent H/O heart bypass surgery Family History Father No problems noted. Mother No problems noted. Social History Household Members: Family Housing: Apartment Alcohol intake: never Patient Tobacco Use Status: Never used Tobacco e-Cigarette/Vaping Use: Never Used Second Hand Smoke Exposure: No service: No Current occupational status: unemployed Cognitive needs: No Hearing needs: No Vision needs: Yes (glasses) Questionnaire PHQ-9 Over the last 2 weeks, how often have you been bothered by any of the following problems? 1. Little interest or pleasure in doing things: not at all 2. Feeling down, depressed, or hopeless: several days 3. Trouble falling or staying asleep, or sleeping too much: not at all 4. Feeling tired or having little energy: several days 5. Poor appetite or overeating: several days 6. Feeling bad about yourself - or that you are a failure or have let yourself or your family down: several days 7. Trouble concentrating on things, such as reading the newspaper or watching television: several days 8. Moving or speaking so slowly that other people could have noticed. Or the opposite - being so fidgety or restless that you have been moving around a lot more than usual: not at all 9. Thoughts that you would be better off or of hurting yourself in some way: not at all Total score: 5 Depression Screening Interpretation: Positive Depression Screening Done: Yes Source: Developed by Drs. Abelardo Patrick, Jazmine Kingston, Jan Gregorio and colleagues, with an educational angela from [id number]. Thrive Questionnaire Date Thrive assessed: 12/01/24 Do you have trouble paying for medicines?: No Do you have trouble taking care of your child, family member or friend?: No Do you have trouble with day-to-day activities such as bathing, preparing meals, shopping, managing finances, etc.?: I choose not to answer this question Are you currently unemployed and looking for a job?: No Are you interested in more education?: No Please select the resources that you would like help with: Paying for medicine Currently or been in a relationship where the following occur: I choose not to answer THRIVE Score: 0 AUDIT C Alcohol Use Questionnaire (AUDIT-C) 1. How often do you have a drink containing alcohol?: Never Total Score: 0 ELENA-7 AMB Questionnaire ELENA-7 Date ELENA - 7 assessed: 12/18/24 Feeling nervous, anxious, or on edge: 1 = Several days Not being able to stop or control worryin = Several days Worrying too much about different things: 1 = Several days Trouble relaxin = Several days Being so restless that it is hard to sit still: 1 = Several days Becoming easily annoyed or irritable: 0 = Not at all Feeling afraid as if something awful might happen: 0 = Not at all Total ELENA-7 score (0-4 normal; 5-9 mild; 10-14 moderate; 15-21 severe): 5 Source: Developed by Jose Winslowet B.W. Thee, Jan Gregorio and colleagues, with an educational angela from [id number]. Physical exam (Primary Care) Vital Signs: Last Vital Signs Temp 97.3 F 12/18/24 14:40 Pulse 61 12/18/24 14:40 BP 112/60 12/18/24 14:40 Pulse Ox 98 12/18/24 14:40 Oxygen Delivery Method Room Air 12/18/24 14:40 BMI result Body Mass Index 29.6 Tobacco/Smoking Status: Tobacco use Status Tobacco use date assessed 12/18/24 12/18/24 14:52 Patient Tobacco Use Status Never used Tobacco 12/18/24 14:52 e-Cigarette/Vaping Use Never Used 12/18/24 14:52 PHQ-9: PHQ-9 Score PHQ-9: Total score 5 12/18/24 14:52 Depression Screening Interpretation: Positive Thrive Assessment: Date of Thrive Assessment Date Thrive assessed 12/01/24 12/18/24 14:52 Currently or been in a relationship where the following occur: I choose not to answer Results AMB Hemoglobin A1c AMB Hemoglobin A1c 6.8 % Last Edit by LYUBOV Gilliam on 12/18/24 15:17 Results Reviewed Results Reviewed: Laboratory Last Values Hgb A1c (Clinic) 6.8 % (4.0-6.0) H 12/18/24 14:38 Coding Level of Care Code Est Pt Level 4 (31396) Complex EM visit Add On G2211 Diagnoses Generalized anxiety disorder F41.1 Stable angina I20.8 Assessment & Plan Assessment & Plan (1) Generalized anxiety disorder: Code(s): F41.1 - Generalized anxiety disorder Category: Medical Plan: Condition is stable (2) Stable angina: Code(s): I20.8 - Other forms of angina pectoris Category: Medical Plan: Condition is stable. Plan History of Present Illness The patient is a 64-year-old male presenting with finger pain and diabetes management. The patient describes experiencing significant pain in his finger, which feels like a shock when the finger is used for daily tasks. The pain, suspected to be due to arthritis or a neuropathic process, has not been relieved by current analgesic therapy with Tylenol Extra Strength. The patient also reports managing diabetes with an HbA1c level of 6.8 from recent tests. 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 - Functional Status: Continues to drive for [employer], indicating functional mobility and activity level. - Family: Reports that family is well. Review of Systems - Musculoskeletal: Reports finger pain with shock-like sensations. - Endocrine: Reports currently controlled blood sugars with diabetes. - Sleep: Reports getting good sleep at night. - Gastrointestinal: Denies issues; regular use of psyllium husk for bowel regulation. Physical Exam General: Cooperative and healthy appearing Nutritional Appearance: Well nourished Orientation/consciousness: Patient oriented x3 Limitations: No limitations Head: Normal to inspection General: Appearance normal, both eyes and all related structures Neck: Normal visual inspection Chest: Normal palpation of entire chest wall Respiratory: N ormal respiratory effort Neurology: Patient oriented x3, reports pain in finger with shock-like sensation upon touch, possibly due to arthritis. Results - Labs: Recent HbA1c level of 6.8. Plan 1. Finger Pain - Use a splint for rest and support. - Continue Tylenol, assess its effectiveness. 2. Diabetes Mellitus - Maintain current management strategies. - Follow up with fasting glucose and PSA tests. Discussion Notes During our conversation, we discussed the management of the patient's finger pain, likely associated with arthritis or a neuropathic process. The recommendation was to use a splint to immobilize the finger and provide relief, along with continued use of Tylenol, with an emphasis on reassessing its effectiveness. For the patient's diabetes, we noted his HbA1c level at 6.8 as an indicator of good control. We discussed ordering further lab tests, including fasting blood glucose and PSA, to monitor his health status. We agreed to schedule a follow-up in six months to reassess his conditions. Patient Instructions - Use a finger splint for a few days to help reduce pain and provide support. - Continue taking Tylenol Extra Strength for pain as needed. - Attend lab tests tomorrow while fasting, including a PSA test. - Maintain current management for diabetes. - Return for a follow-up visit in six months to check progress. Orders: Orders Complete Blood Count no Diff Today F41.1 - Generalized anxiety disorder, I20.8 - Other forms of angina pectoris Thyroid Stimulating Hormone Today F41.1 - Generalized anxiety disorder, I20.8 - Other forms of angina pectoris Hemoglobin A1c Today F41.1 - Generalized anxiety disorder, I20.8 - Other forms of angina pectoris AMB Hemoglobin A1c Today E11.9 - Type 2 diabetes mellitus without complications Basic Metabolic Panel Today F41.1 - Generalized anxiety disorder, I20.8 - Other forms of angina pectoris Lipid Panel Today F41.1 - Generalized anxiety disorder, I20.8 - Other forms of angina pectoris Liver Panel Today F41.1 - Generalized anxiety disorder, I20.8 - Other forms of angina pectoris Microalbumin, Random (w Creat) Today F41.1 - Generalized anxiety disorder, I20.8 - Other forms of angina pectoris UA and rflx microscopic Today F41.1 - Generalized anxiety disorder, I20.8 - Other forms of angina pectoris Prostate Specific Antigen Scr Today F41.1 - Generalized anxiety disorder, I20.8 - Other forms of angina pectoris
[2024-12-18 14:40] VITALS: BP 112/60; PULSE 61; TEMP 36.3; O2SAT 98; BMI 29.6
== END 2024-12-18 15:32 | disposition home or self-care (01) ==
LOC: HO.HMCH 14:35
PROVIDERS: PCP Internal Medicine; Visit Provider Internal Medicine
DX: F41.1 Generalized anxiety disorder (principal); I20.89 Other forms of angina pectoris; E11.9 Type 2 diabetes mellitus without complications

== ENCOUNTER → 2024-12-18 14:34 | Outpatient (BNVA) | payer OTHER, SELFPAY | PROVIDERS: PCP Internal Medicine; Visit Provider Internal Medicine | DX: E11.9 Type 2 diabetes mellitus without complications (principal); M79.646 Pain in unspecified finger(s); I10 Essential (primary) hypertension; G89.29 Other chronic pain; F41.1 Generalized anxiety disorder; I20.89 Other forms of angina pectoris | CPT/HCPCS: 83036; 99212 ==

== ENCOUNTER 2024-12-19 09:03 | Outpatient (REF) | payer OTHER, SELFPAY ==
[2024-12-19 09:37] LABS: Hematocrit 41.7 % (42.0-52.0); Hemoglobin 13.6 g/dl (14.0-18.0); Mean Corpuscular HGB Conc 32.6 g/dl (31.0-36.0); Mean Corpuscular Hemoglobin 28.3 pg (27.0-33.0); Mean Corpuscular Volume 86.9 fL (80.0-98.0); Platelet Count 187 X10*3/uL (160-400); White Blood Count 8.4 X10*3/uL (4.8-10.8)
[2024-12-19 09:48] LABS: Estimated Average Glucose 151 mg/dL; Hemoglobin A1C 190.4413 umol/L; Hemoglobin A1c % 6.9 % (<6.0)
[2024-12-19 09:57] LABS: Appearance Urine Clear; Color Urine Yellow; Glucose Urine UA >=1000 mg/dL (Negative); Leukocyte Esterase Urine Negative (Negative); Nitrite Urine Negative (Negative); Specific Gravity - Urine >= 1.030 (1.005-1.025); UMIC TRIGGER UA YES; Urine Blood Negative (Negative); Urine Ketones Trace mg/dL (Negative); Urine Protein Negative (Neg-Trace)
[2024-12-19 10:08] LABS: Bacteria Urine None Seen (None Seen); Hyaline Casts Urine 0-2 /LPF (0-2); RBC Urine 0-2 /HPF (0-2); Squamous Epithelial Cell Urine 0-2 /HPF (0-2); WBC Urine 0-5 /HPF (0-5)
[2024-12-19 10:20] LABS: Alanine Aminotransferase 18 U/L (0-40); Albumin Level 4.1 g/dL (3.5-5.0); Alkaline Phosphatase 60 U/L (39-117); Anion Gap 11 (12-20); Aspartate Amino Transferase 19 U/L (5-37); Bilirubin Direct 0.2 mg/dL (0.0-0.5); Bilirubin Total 0.6 mg/dL (0.0-1.0); Blood Urea Nitrogen 17 mg/dL (9-16); Calcium 9.2 mg/dL (8.4-10.2); Carbon Dioxide 26 mmol/L (22-29); Chloride 105 mmol/L (96-108); Cholesterol 81 mg/dL (<200); Estimated Glomerular Filt Rate > 60; Glucose Random 149 mg/dL (60-115); HDL Cholesterol 29 mg/dL (>40); LDL Cholesterol Calculated 26 mg/dL (<100); Potassium 3.8 mmol/L (3.3-5.1); Sodium 138 mmol/L (135-145); Total Protein 6.8 g/dL (6.5-8.0); Triglycerides 133 mg/dL (<150)
[2024-12-19 10:37] LABS: Prostate Specific Antigen Scr 0.94 ng/mL (<0.05-4.0)
[2024-12-19 10:39] LABS: Thyroid Stimulating Hormone 1.69 uIU/mL (0.32-4.0)
[2024-12-19 11:13] LABS: Creatinine Urine 112.53 mg/dL; Microalbum/Creatinine Ratio Ur 4.4 ug/mg cr (<30)
== END 2024-12-19 09:04 | disposition home or self-care (01) ==
LOC: HO.LAB 09:03
PROVIDERS: PCP Internal Medicine; Visit Provider Internal Medicine
DX: F41.1 Generalized anxiety disorder (principal); I20.89 Other forms of angina pectoris
CPT/HCPCS: 36415; 80048; 80061; 80076; 81001; 82043; 82570; 83036; 84153; 84443; 85027

== ENCOUNTER 2025-03-02 10:08 | Outpatient (AMB) | payer OTHER, SELFPAY ==
--- NOTE | 2025-03-02 10:14 | A.OFFVIS_ITS ---
Vital Signs 03/02/25 10:15 Height 5 ft 6 in Weight 185 lb 3.013 oz BMI 29.9 BP 120/74 Blood Pressure Location Lt brachial Position Sitting Pulse 63 Intake Visit Reasons: 6m follow up Intake Note: 6 month follow-up with ekg feeling good [employer] Required: No Allergies No Known Allergies Allergy (Verified 12/18/24 14:40) Medication List - Last Reconciled 03/02/25 by Patrick Cunningham MD apixaban (Eliquis) 5 mg PO BID aspirin 81 mg PO DAILY atenolol 50 mg PO BID atorvastatin 80 mg PO BEDTIME blood sugar diagnostic (FreeStyle Lite Strips) USE TO TEST BLOOD SUGAR ONCE DAILY citalopram 10 mg PO DAILY dapagliflozin propanediol (Farxiga) 10 mg PO DAILY escitalopram oxalate 10 mg PO DAILY 30 days ezetimibe 10 mg PO DAILY losartan 25 mg PO BID metformin 1,000 mg PO BID omeprazole 40 mg (2 x 20 mg) PO DAILY sitagliptin phosphate (Januvia) 100 mg PO DAILY HPI Comments Details: Pleasant 64-year-old gentleman with background history of diabetes type 2, hypertension, hyperlipidemia, coronary artery bypass surgery in 1999 when he had BLAKE to LAD, vein graft to diagonal, vein graft to obtuse marginal and radial graft to right coronary artery who came with chest discomfort in September to [facility] with ST depressions and T-wave inversion in the precordial leads. He was taken urgently for cardiac catheterization which showed occluded vein graft to diagonal and severe stenosis of the vein graft to OM. His radial graft to RCA and BLAKE to LAD were open. He had drug-eluting stent placed to the vein graft. There was a small thrombus noticed inside the stent angiographically as well as with intravascular ultrasound. He was on Integrilin for 4-6 hours after the procedure. He did well and has been doing fine since then. Echocardiography has shown normal EF 55-60% with diastolic dysfunction, elevated filling pressures and inferoseptal wall hypokinesis. Mild dilation of ascending aorta was also noticed. Taking medications regularly. He is here for follow-up today. He is reporting that he was admitted at [facility] with palpitations. He was told that he is dehydrated. He is describing that his heart skips beats and when he puts the pulse ox his heart rate jumped between 90s to 110s. There was concern for atrial fibrillation admitted a cardiac event monitor which showed atrial fibrillation. Since then he has been started on apixaban. On follow-up today he has been doing well. Denies chest pain or palpitations. Overall taking medications regularly without any significant issues. No bleeding concerns. 03/19/23: He is here for follow-up. Clinically stable. Denying chest discomfort shortness of breath. No palpitations. No bleeding concerns. Tolerating medications well. 08/20/23: He returns for follow-up. He has been doing well. No chest discomfort shortness breath. Taking medications regularly. 02/18/24: He is here for follow-up. He has been doing well without any exertional chest discomfort shortness of breath. No dizziness or syncope. EKG in the office today showing right bundle-branch block which is new with precordial T-wave inversions. He also has somewhat poor R-wave progression in the lateral leads. Clinically he is denying any symptoms. He is on atenolol 50 mg twice a day. 04/28/2024: He is here for follow-up. On last visit he had right bundle-branch block with T-wave inversions on the ECG. He underwent echocardiography which showed normal biventricular function without any regional wall motion abnormalities. Early April he was at [facility] with AFib with RVR and underwent cardioversion in the emergency department. He has not had any further episodes of atrial fibrillation since then. Denying anginal symptoms. Has been walking and exercising regularly without any problems. 08/27/2024: He is here for follow-up. He has been exercising regularly and goes to gym every day. He is doing 2 hours of cardio and has lost 15 kg. No exertional symptoms whatsoever. No bleeding concerns currently with apixaban. He has not had any further episode of atrial fibrillation. 03/02/2025: He is here for follow-up. He has been taking medications regularly. No bleeding concerns. He is exercising on treadmill and has no exertional complaints. [facility] Medical History Stable angina RBBB (right bundle branch block) BPH (benign prostatic hyperplasia) Osteoarthritis Atrial fibrillation Generalized anxiety disorder Coronary artery disease Diabetes mellitus Surgical History History of endoscopy History of colonoscopy (~05/15/24) Hx of heart artery stent H/O heart bypass surgery Family History Father No problems noted. Mother No problems noted. Social History Household Members: Family Housing: Apartment Alcohol intake: never Patient Tobacco Use Status: Never used Tobacco e-Cigarette/Vaping Use: Never Used Second Hand Smoke Exposure: No service: No Current occupational status: unemployed Cognitive needs: No Hearing needs: No Vision needs: Yes (glasses) Review of Systems Const Denies chills, Denies fatigue, Denies fever(s), Denies frequent falls, Denies weakness, Denies weight gain and Denies weight loss ENT Denies dizziness Card Denies chest pain, Denies leg edema, Denies lightheadedness, Denies palpitations, Denies dyspnea, Denies dyspnea on exertion, Denies orthopnea and Denies other (loss of consciousness) Resp Denies cough, Denies dyspnea and Denies dyspnea on exertion GI Denies hematochezia and Denies change in stool character Musc Denies abnormal gait, Denies muscle weakness, Denies numbness, Denies radiating pain into limb and Denies tingling Neuro Denies abnormal gait, Denies dizziness, Denies frequent falls, Denies numbness, Denies tingling and Denies weakness Endo Denies fatigue and Denies palpitations Physical Exam Vital Signs: Last Vital Signs Pulse 63 03/02/25 10:15 BP 120/74 03/02/25 10:15 BMI result Body Mass Index 29.9 GENERAL APPEARANCE: in no acute distress, well developed, well nourished. NECK/THYROID: no carotid bruit, no jugular venous distention. SKIN: Midline sternotomy scar. Left radial harvest scar. HEART: Systolic murmur aortic area, bradycardic. LUNGS: clear to auscultation bilaterally. ABDOMEN: normal, bowel sounds present, soft, nontender, nondistended. EXTREMITIES: no clubbing, cyanosis, or edema. PERIPHERAL PULSES: equal. NEUROLOGIC: nonfocal, alert and oriented. PSYCH: mood/affect full range. Office Procedures EKG Details: Sinus rhythm 63 beats per minute, left axis deviation, inferior infarct, right bundle-branch block, QTC 472 milliseconds. [id number], Complete Assessment & Plan Assessment & Plan (1) Essential hypertension: Code(s): I10 - Essential (primary) hypertension Category: Medical (2) RBBB: Code(s): I45.10 - Unspecified right bundle-branch block Category: Medical (3) H/O heart bypass surgery: Comment: 1999 Code(s): Z95.1 - Presence of aortocoronary bypass graft Category: Surgical (4) Paroxysmal atrial fibrillation: Code(s): I48.0 - Paroxysmal atrial fibrillation Category: Medical Plan 64-year-old gentleman with known history of coronary artery disease with previous bypass surgery and graft PCI presenting for follow-up. He has right bundle-branch block and had episode of paroxysmal atrial fibrillation for which he was cardioverted in the emergency department in the past. He has done well since then and has not had any further recurrence of atrial fibrillation. He is doing quite well and exercising regularly and losing weight. Blood pressure is well controlled. Tolerating Eliquis and aspirin without any bleeding. Follow-up with us in 6 months. Thank you for allowing me to participate in the care of your patient. Please feel free to contact me if you have any questions. Coding Level of Care Code Est Pt Level 4 (23679) Diagnoses Essential hypertension I10 RBBB I45.10 H/O heart bypass surgery Z95.1 Paroxysmal atrial fibrillation I48.0 CPT Codes EKG - CPT: 06400-Jeptbrbchkaugisml, Complete ([id number])
[2025-03-02 10:15] VITALS: BP 120/74; PULSE 63; BMI 29.9
== END 2025-03-02 10:53 | disposition home or self-care (01) ==
LOC: HO.HCS 10:09
PROVIDERS: PCP Internal Medicine; Visit Provider Internal Medicine Cardiovascular Disease
DX: I10 Essential (primary) hypertension (principal); I45.10 Unspecified right bundle-branch block; Z95.1 Presence of aortocoronary bypass graft; I48.0 Paroxysmal atrial fibrillation
CPT/HCPCS: 93010; 99214

== ENCOUNTER → 2025-03-02 10:08 | Outpatient (BNVA) | payer OTHER, SELFPAY | PROVIDERS: PCP Internal Medicine; Visit Provider Internal Medicine Cardiovascular Disease | DX: I10 Essential (primary) hypertension (principal); I48.0 Paroxysmal atrial fibrillation; I45.10 Unspecified right bundle-branch block; Z95.1 Presence of aortocoronary bypass graft; R94.31 Abnormal electrocardiogram [ECG] [EKG] | CPT/HCPCS: 93005; 99212 ==

== ENCOUNTER 2025-03-03 09:32 | Outpatient (AMB) | payer OTHER, SELFPAY ==
--- NOTE | 2025-03-03 09:40 | A.OFFVIS_ITS ---
Vital Signs 03/03/25 09:41 Height 5 ft 6 in Weight 185 lb BMI 29.9 BP 104/61 Blood Pressure Location Lt brachial Position Sitting Pulse 53 Pulse Oximetry (%) 96 Oxygen Delivery Method Room Air Intake Visit Reasons: Post op , was TRAN pt . Intake Note: Patient complex follow up for s/p double results done on 05/[address] Huff and andrea was 12/2023 with Keely for acid reflux. Patient cc: acid reflux on and off, left middle abdominal pain. Denies any other GI issues. Alterations Tailor Required: No Accompanied by: Self / Same As Patient Allergies No Known Allergies Allergy (Verified 03/03/25 09:40) Medication List - Last Reconciled 03/03/25 by Cara Schmidt CNP apixaban (Eliquis) 5 mg PO BID aspirin 81 mg PO DAILY atenolol 50 mg PO BID atorvastatin 80 mg PO BEDTIME blood sugar diagnostic (FreeStyle Lite Strips) USE TO TEST BLOOD SUGAR ONCE DAILY citalopram 10 mg PO DAILY dapagliflozin propanediol (Farxiga) 10 mg PO DAILY escitalopram oxalate 10 mg PO DAILY 30 days ezetimibe 10 mg PO DAILY losartan 25 mg PO BID metformin 1,000 mg PO BID omeprazole 40 mg (2 x 20 mg) PO DAILY sitagliptin phosphate (Januvia) 100 mg PO DAILY HPI HPI Post op , was TRAN pt .: Details: Patient is a 64-year-old male with PMH of AFib, diabetes, CAD, BPH, oA and anxiety. Last visit with FLORENTIN Yu 01/03/2024 for acid reflux. Rei presents for follow-up after colonoscopy and upper endoscopy completed in May 2024. The colonoscopy was normal, showing only internal and external hemorrhoids with no polyps. The upper endoscopy revealed gastritis. The patient's primary concern is gas pains in the left upper quadrant. He describes the sensation as heaviness in the left upper quadrant which is alleviated by burping and occurs about twice a month, often after eating too much. The patient is currently taking 20 mg of omeprazole twice daily for symptom management. The patient denies burning sensation, regurgitation, or trouble swallowing. Bowel habits are regular with the use of Metamucil. The patient denies constipation, diarrhea, blood in stools, nausea, or vomiting. The patient's diet consists of oatmeal, eggs, tea, rice, beans, meat, and alberto (not spicy), with high water intake and avoidance of juices and soft drinks. The patient's weight has been consistent in the 180's. Recent A1c was 6.8. Social hx: -denies ETOH use -denies recreational drug use -non-smoker [facility] Medical History (Updated 03/03/25 @ 10:55 by Cara Schmidt CNP) Hemorrhoids Stable angina RBBB (right bundle branch block) BPH (benign prostatic hyperplasia) Osteoarthritis Atrial fibrillation Generalized anxiety disorder Coronary artery disease Diabetes mellitus Surgical History History of endoscopy History of colonoscopy (~05/15/24) Hx of heart artery stent H/O heart bypass surgery Family History Father No problems noted. Mother No problems noted. Social History Household Members: Family Housing: Apartment Alcohol intake: never Patient Tobacco Use Status: Never used Tobacco e-Cigarette/Vaping Use: Never Used Second Hand Smoke Exposure: No service: No Current occupational status: unemployed Cognitive needs: No Hearing needs: No Vision needs: Yes (glasses) Review of Systems Const Reports as per HPI ENT Reports as per HPI Card Reports as per HPI Resp Reports as per HPI GI Reports as per HPI Reports as per HPI Physical Exam Vital Signs: Last Vital Signs Pulse 53 03/03/25 09:41 BP 104/61 03/03/25 09:41 Pulse Ox 96 03/03/25 09:41 Oxygen Delivery Method Room Air 03/03/25 09:41 BMI result Body Mass Index 29.9 Const General: healthy appearing, no acute distress and well developed Nutritional Appearance: average body habitus Orientation/consciousness: patient oriented x3 HEENT Head: Yes normal to inspection, Yes normocephalic and Yes atraumatic Face and sinus: Yes normal facial exam Eyes General: appearance normal, both eyes and all related structures Neck Neck: Yes normal visual inspection Chest Chest palpation & inspection: other (Keloid surgical scar to mid chest) Resp Effort & Inspection: normal respiratory effort, able to speak in complete sentences, no tracheal deviation and symmetric chest movement Auscultation: clear to auscultation bilaterally Cardio Jugular venous distension: no JVD Rate: regular rate Rhythm: regular rhythm Heart sounds: S1 normal heart sound present, S2 normal heart sound present, no gallops and no murmurs GI Inspection: Yes normal to inspection and No distended Palpation (GI): Soft to palpation, not firm, nontender and No hepatosplenomegaly present Auscultation: normal bowel sounds Neuro General: patient oriented x3 Gait exam (Neuro): Normal gait present Psych Appearance: grossly normal Mental Status: mental status grossly normal Speech and movement: Normal speech and movement present Affect: normal affect Attitude: cooperative Thought process: Normal thought process present Thought content: Normal thought content present Insight: Good insight present (Psych) Judgement: Good judgement present (Psych) Results Reviewed Results Reviewed: Operative Note Date of Service: 05/15/24 Narrative: Operative Information Procedure Description: EGD, Colonoscopy Indication: screening, GERD Anesthesia: MAC FLEXIBLE TRANSORAL UPPER GASTROINTESTINAL ENDOSCOPY AND COLONOSCOPY PROCEDURE NOTE UPPER ENDOSCOPY Procedure: The patient was placed in the left lateral decubitis position and pre-procedure medications were administered and a bite block was placed. The endoscope was inserted into the mouth and advanced under direct vision to the third part of duodenum. A careful inspection was made as the upper endoscope was withdrawn including a retroflexed examination of the proximal stomach; Findings and interventions are described below. Findings: Larynx:normal Esophagus: GE junction at 38 cm, diaphragm hiatus at 38 cm, normal mucosa Stomach: Patchy erythema. Biopsies were obtained. Grade 2 flap valve on retroflexed examination of the cardia. Duodenum: Normal bulb and descending duodenum, bx taken Intervention: Biopsies as noted above, COLONOSCOPY Instrument: Olympus variable stiffness pediatric scope 190L Colonoscopy Monitoring: Vital signs and clinical assessment, continuous EKG monitoring, Pulse oximetry, Carbon Dioxide monitoring and blood pressure monitoring were done throughout the procedure. Colon withdrawal time was 10 minutes. Procedure: The patient was placed in the left lateral decubitis position and pre-procedure medications were administered. After a digital rectal examination of the ano-rectum, the video colonoscope was inserted into the rectum and advanced through the colon to the cecum/TI. The colonoscope was slowly withdrawn in a retrograde panoramic fashion and the colon mucosa was carefully examined including a retroflexed view of the rectum. Findings and interventions are described below. Procedure Difficulty:moderate Findings: Terminal Ileum-normal Cecum:normal Ascending Colon: normal Transverse Colon -normal Descending Colon:normal Sigmoid Colon: normal Rectum: Retroflexion with small internal hemorrhoids, grade I Anorectum - normal, skin tag noted Colon preparation: [place] Bowel Preparation Scale Right colon; 2 Transverse colon: 2 Left colon; 2 Impression and Post Procedure Diagnosis: Endoscopy Findings: gastritis Colonoscopy Findings: internal hemorrhoids Plan: Await Pathology results Repeat Colonoscopy in 10 years or earlier if clinically indicated High fiber diet leaflet avoid straining at stool, epsom salts and sitz bath, anusol supps or cream can restart apixiban, aspirin tomorrow PATHOLOGY: Collected: 05/15/24 Location: .[facility] Received: 05/15/24 ADDENDUM REPORT Addendum Addendum #1 Immunostain for H. pylori on B is negative. Control stains appropriately. Electronically Signed By: Sarah Weller 05/20/24 0076 Diagnosis A. Duodenum, biopsy: Duodenal mucosa with preserved villi and no specific change. B. Stomach, biopsy: Gastric antral mucosa with minimal chronic inactive gastritis; negative for intestinal metaplasia and dysplasia. Comment: (B): Immunostain for H. pylori pending; addendum to follow. Clinical History Pre-Op Dx: GERD without esophagitis Post-Op Dx: Internal and external hemorrhoids, gastritis Assessment & Plan Assessment & Plan (1) Acid reflux: Comment: 05/15/24 EGD gastritis Code(s): K21.9 - Gastro-esophageal reflux disease without esophagitis Category: Medical Qualifiers: Esophagitis presence: without esophagitis Qualified Code(s): K21.9 - Gastro-esophageal reflux disease without esophagitis Plan: intermittent reflux symptoms; presented as gas pains in the left upper quadrant, occurring with heavy meals. Without alarm features. Upper endoscopy in May 2024 showed gastritis. -Continue omeprazole 20 mg PO twice daily. Consider alternative PPI if reflux symptoms return - Consider trial of simethicone for gas relief - Encouraged Low FODMAP diet, handout provided. Avoid known triggers - Continue to avoid juices and soft drinks (2) Hemorrhoids: Comment: 05/15/24 colonoscopy complete with adequate prep-Internal and external hemorrhoids. Recommendation for repeat in 10 years ( 2033). Code(s): K64.9 - Unspecified hemorrhoids Category: Medical Qualifiers: Hemorrhoid type: first degree Qualified Code(s): K64.0 - First degree hemorrhoids Plan: Recent colonoscopy in May 2024 revealed internal and external hemorrhoids. No polyps were found. Plan: - Continue Metamucil for regular bowel movements - Monitor for any changes in bowel habits or rectal bleeding - Repeat colonoscopy in 10 years (2033) if asymptomatic Plan Follow-up in [address] Huff per patient request Time: I spent a total of 30 minutes on the date of encounter which includes: Preparing to see the patient (reviewed previous documentation, test results and medical history) Performing a medically appropriate exam and/or evaluation Ordering medications, tests, and procedures Documenting clinical information in the health record Coding Level of Care Code Established Pt Est Pt Level 4 (07371) Patient Type Established Diagnoses Gastroesophageal reflux disease without esophagitis K21.9 Esophagitis presence: without esophagitis Grade I hemorrhoids K64.0 Hemorrhoid type: first degree
[2025-03-03 09:41] VITALS: BP 104/61; PULSE 53; O2SAT 96; BMI 29.9
== END 2025-03-03 10:21 | disposition home or self-care (01) ==
LOC: HO.HGI 09:33
PROVIDERS: PCP Internal Medicine; Visit Provider Nurse Practitioner Family
DX: K21.9 Gastro-esophageal reflux disease without esophagitis (principal); K64.0 First degree hemorrhoids
CPT/HCPCS: 99214

== ENCOUNTER → 2025-03-03 09:32 | Outpatient (BNVA) | payer OTHER, SELFPAY | PROVIDERS: PCP Internal Medicine; Visit Provider Nurse Practitioner Family | DX: K21.9 Gastro-esophageal reflux disease without esophagitis (principal); K64.0 First degree hemorrhoids | CPT/HCPCS: 99212 ==